=== PATIENT | female | born 1960 | race Caucasian/White ===

== ENCOUNTER → 2017-06-29 | Outpatient (CLI) | payer BC ==
--- NOTE | 2017-06-29 14:22 | MM ---
Reason for exam: screening (asymptomatic). Last mammogram was performed 2 years and 1 month ago. History: Patient is postmenopausal. Family history of breast cancer in maternal cousin at age 53. Implants in both breasts, 1987. Physical Findings: A clinical breast exam by your physician is recommended on an annual basis and results should be correlated with mammographic findings. MG 3D Screen Mammo Imp/Cad Bilateral CC, MLO, and ID view(s) were taken. Prior study comparison: June 05, 2015, bilateral MG screening mammo implant/CAD. August 01, 2013, bilateral digital screening mammo w/CAD. There are scattered fibroglandular densities. There are no suspicious calcifications. Bilateral implants intact. No significant changes when compared with prior studies. ASSESSMENT: Benign, BI-RAD 2 RECOMMENDATION: Routine screening mammogram of both breasts in 1 year.
== END | disposition home or self-care (01) ==
LOC: RADMAMWWP 09:25
PROVIDERS: ATTEND Internal Medicine
DX: Z12.31 Encounter for screening mammogram for malignant neoplasm of breast (principal)
CPT/HCPCS: 77063; 77067

== ENCOUNTER 2017-10-30 12:19 | Inpatient (IN) | payer BC ==
--- NOTE | 2017-10-30 13:12 | ED ---
Dizziness HPI - General Chief Complaint: Dizziness Stated Complaint: Vomiting Time Seen by Provider: 10/30/17 12:40 Source: patient, RN notes reviewed Mode of arrival: wheelchair Limitations: no limitations - History of Present Illness Initial Comments: This is a 57-year-old female who presents with complaints of not feeling well for the past several weeks she's had shortness of breath with exertional dyspnea he had some left-sided chest discomfort he states it 2 days ago she had some heartburn some nausea sweats dizziness and this morning she woke up with her bed sheets soaked from sweats she felt shoulder. She has a stress test and echocardiogram scheduled with not until later in the month. She is hasn't felt well. He has no personal history of heart or lung disease she did quit smoking her mother did from lung cancer at the age of 65. No other current complaints the discomfort was mild to moderate in severity. MD Complaint: dizziness, lightheadedness, other - Related Data Allergies Allergy/AdvReac Type Severity Reaction Status Date / Time No Known Allergies Allergy Verified 10/30/17 12:33 Review of Systems ROS Statement: Those systems with pertinent positive or pertinent negative responses have been documented in the HPI. ROS Other: All systems not noted in ROS Statement are negative. Past Medical History Past Medical History: No Reported History History of Any Multi-Drug Resistant Organisms: None Reported Past Surgical History: Hysterectomy, Tubal Ligation Past Psychological History: Anxiety, Depression Smoking Status: Former smoker Past Alcohol Use History: None Reported, Rare Past Drug Use History: None Reported General Exam - General Exam Comments Initial Comments: This is a well-developed well-nourished awake alert oriented 3 female Limitations: no limitations General appearance: alert, anxious Head exam: Present: atraumatic, normocephalic, normal inspection Eye exam: Present: normal appearance, PERRL, EOMI. Absent: scleral icterus, conjunctival injection, periorbital swelling ENT exam: Present: normal exam, mucous membranes moist Neck exam: Present: normal inspection. Absent: tenderness, meningismus, lymphadenopathy Respiratory exam: Present: normal lung sounds bilaterally. Absent: respiratory distress, wheezes, rales, rhonchi, stridor Cardiovascular Exam: Present: regular rate, normal rhythm, normal heart sounds. Absent: systolic murmur, diastolic murmur, rubs, gallop, clicks GI/Abdominal exam: Present: soft, normal bowel sounds. Absent: distended, tenderness, guarding, rebound, rigid Extremities exam: Present: normal inspection, full ROM, normal capillary refill. Absent: tenderness, pedal edema, joint swelling, calf tenderness Back exam: Present: normal inspection Neurological exam: Present: alert, oriented X3, CN II-XII intact Psychiatric exam: Present: normal affect, normal mood Skin exam: Present: warm, dry, intact, normal color. Absent: rash Course Vital Signs 10/30/17 12:28 Temperature 98.3 F Pulse Rate 98 Respiratory 18 Rate Blood Pressure 109/61 O2 Sat by Pulse 96 Oximetry - Reevaluation(s) Reevaluation #1: 10/30/17 14:28 Patient has demonstrated no chest pain while in the department. Reevaluation #2: 10/30/17 14:29 I did was discussed with the patient and her family members as well as her son who is in PA school in [place] to inform them of the findings. Patient does demonstrate evidence of a non-ST elevation myocardial infarction this did likely began 2 days ago when her symptoms weren't or worse. She currently is pain-free EKG Findings - EKG Results: EKG: interpreted by ERMVito, sinus rhythm (Sinus rhythm with a rate of 92 SC interval 150 QRS duration 82 QT since QTC of 438/541 nonspecific inferior changes or T-wave abnormalities in the anterolateral leads prolonged QT) Medical Decision Making - Medical Decision Making I did discuss findings with the patient family members also with the hospitalist and cardiology will be notified. Patient currently is asymptomatic at rest and maintains good blood pressure pulse rate. She will be admitted for evaluation of a non-ST elevation myocardial infarction - Lab Data Result diagrams: 10/30/17 13:18 10/30/17 13:18 Lab Results 10/30/17 10/30/17 10/30/17 Range/Units :: 13:18 WBC (3.8-10.6) k/uL RBC (3.80-5.40) m/uL Hgb (11.4-16.0) gm/dL Hct (34.0-46.0) % MCV (80.0-100.0) fL MCH (25.0-35.0) pg MCHC (31.0-37.0) g/dL RDW (11.5-15.5) % Plt Count (150-450) k/uL Neutrophils % % Lymphocytes % % Monocytes % % Eosinophils % % Basophils % % Neutrophils # (1.3-7.7) k/uL Lymphocytes # (1.0-4.8) k/uL Monocytes # (0-1.0) k/uL Eosinophils # (0-0.7) k/uL Basophils # (0-0.2) k/uL PT 9.8 (9.0-12.0) sec INR 1.0 (<1.2) APTT 22.2 (22.0-30.0) sec D-Dimer 0.22 (<0.60) mg/L FEU Sodium 140 (137-145) mmol/L Potassium 4.0 (3.5-5.1) mmol/L Chloride 102 (98-107) mmol/L Carbon Dioxide 24 (22-30) mmol/L Anion Gap 14 mmol/L BUN 24 H (7-17) mg/dL Creatinine 1.18 H (0.52-1.04) mg/dL Est GFR (CKD-EPI)AfAm 59 (>60 ml/min/1.73 sqM) Est GFR (CKD-EPI)NonAf 51 (>60 ml/min/1.73 sqM) Glucose 99 (74-99) mg/dL Calcium 10.1 (8.4-10.2) mg/dL Magnesium 2.4 H (1.6-2.3) mg/dL Total Bilirubin 0.8 (0.2-1.3) mg/dL AST 31 (14-36) U/L ALT 43 (9-52) U/L Alkaline Phosphatase 85 (38-126) U/L Total Creatine Kinase 281 H (30-135) U/L CK-MB (CK-2) 3.2 H* (0.0-2.4) ng/mL CK-MB (CK-2) Rel Index 1.1 Troponin I 0.625 H* (0.000-0.034) ng/mL Total Protein 7.2 (6.3-8.2) g/dL Albumin 4.5 (3.5-5.0) g/dL TSH 4.000 (0.465-4.680) mIU/L 10/30/17 Range/Units 13:18 WBC 15.4 H (3.8-10.6) k/uL RBC 5.40 (3.80-5.40) m/uL Hgb 14.9 (11.4-16.0) gm/dL Hct 45.8 (34.0-46.0) % MCV 84.8 (80.0-100.0) fL MCH 27.5 (25.0-35.0) pg MCHC 32.4 (31.0-37.0) g/dL RDW 14.4 (11.5-15.5) % Plt Count 557 H (150-450) k/uL Neutrophils % 68 % Lymphocytes % 24 % Monocytes % 6 % Eosinophils % 0 % Basophils % 0 % Neutrophils # 10.5 H (1.3-7.7) k/uL Lymphocytes # 3.6 (1.0-4.8) k/uL Monocytes # 0.9 (0-1.0) k/uL Eosinophils # 0.1 (0-0.7) k/uL Basophils # 0.0 (0-0.2) k/uL PT (9.0-12.0) sec INR (<1.2) APTT (22.0-30.0) sec D-Dimer (<0.60) mg/L FEU Sodium (137-145) mmol/L Potassium (3.5-5.1) mmol/L Chloride (98-107) mmol/L Carbon Dioxide (22-30) mmol/L Anion Gap mmol/L BUN (7-17) mg/dL Creatinine (0.52-1.04) mg/dL Est GFR (CKD-EPI)AfAm (>60 ml/min/1.73 sqM) Est GFR (CKD-EPI)NonAf (>60 ml/min/1.73 sqM) Glucose (74-99) mg/dL Calcium (8.4-10.2) mg/dL Magnesium (1.6-2.3) mg/dL Total Bilirubin (0.2-1.3) mg/dL AST (14-36) U/L ALT (9-52) U/L Alkaline Phosphatase (38-126) U/L Total Creatine Kinase (30-135) U/L CK-MB (CK-2) (0.0-2.4) ng/mL CK-MB (CK-2) Rel Index Troponin I (0.000-0.034) ng/mL Total Protein (6.3-8.2) g/dL Albumin (3.5-5.0) g/dL TSH (0.465-4.680) mIU/L - Radiology Data Radiology results: report reviewed (I did review the imaging and report no acute findings.), image reviewed Critical Care Time Critical Care Time: Yes Critical Care Time: 32 minutes of critical care time which includes initial presentation with history physical labs x-rays several reevaluation of the patient. Discussed with the patient family as well as the physicians about the findings. Admission orders and documentation of the above. Disposition Clinical Impression: Non-STEMI (non-ST elevated myocardial infarction) Disposition: ADMITTED IP TO THIS [facility] Condition: Stable Referrals: Lita Brown MD [Primary Care Provider] - 1-2 days
[2017-10-30 13:35] LABS: Basophils % (A) 0 %; Eosinophils # (A) 0.1 k/uL (0-0.7); Eosinophils % (A) 0 %; HCT 45.8 % (34.0-46.0); HGB 14.9 gm/dL (11.4-16.0); Lymphocytes # (A) 3.6 k/uL (1.0-4.8); Lymphocytes % (A) 24 %; MCH 27.5 pg (25.0-35.0); MCHC 32.4 g/dL (31.0-37.0); MCV 84.8 fL (80.0-100.0); Mean Platelet Volume 6.6; Monocytes # (A) 0.9 k/uL (0-1.0); Monocytes % (A) 6 %; Neutrophils # (A) 10.5 k/uL (1.3-7.7); Neutrophils % (A) 68 %; Platelet Count 557 k/uL (150-450); RDW 14.4 % (11.5-15.5); WBC 15.4 k/uL (3.8-10.6)
--- NOTE | 2017-10-30 13:37 | XR ---
EXAMINATION TYPE: XR chest 2V DATE OF EXAM: 10/30/2017 HISTORY: cough. REFERENCE: NONE. FINDINGS: The lungs are clear. Pleural spaces are clear. Heart size is upper limits of normal. IMPRESSION: NO ACTIVE INTRATHORACIC DISEASE.
[2017-10-30 13:42] LABS: Albumin 4.5 g/dL (3.5-5.0); Calcium 10.1 mg/dL (8.4-10.2); Magnesium 2.4 mg/dL (1.6-2.3); Total Bilirubin 0.8 mg/dL (0.2-1.3); Total Protein 7.2 g/dL (6.3-8.2)
[2017-10-30 13:45] LABS: D-Dimer 0.22 mg/L FEU (<0.60); Partial Thromboplastin Time 22.2 sec (22.0-30.0); Prothrombin Time 9.8 sec (9.0-12.0)
[2017-10-30 14:07] LABS: Creatine Kinase MB 3.2 ng/mL (0.0-2.4); Troponin I 0.625 ng/mL (0.000-0.034)
[2017-10-30] MEDS ORDERED: NITROGLYCERIN SL TABS 0.4 MG TAB SUBLINGUAL PRN ×2 (14:32→15:50)
[2017-10-30] MEDS ORDERED: HEPARIN SODIUM,PORCINE 5,000 UNIT/ML 1 ML VIAL IV ONE (14:32)
[2017-10-30] MEDS ORDERED: HEPARIN SODIUM,PORCINE/D5W PMX 25,000 UNIT in DEXTROSE/WATER 1 500ML.BAG IV SCH (14:45)
[2017-10-30] MEDS ORDERED: SODIUM CHLORIDE 0.9% 1,000 ML IV SCH ×3 (14:45→17:15)
[2017-10-30] MEDS ORDERED: ALPRAZolam 0.5 MG TAB PO PRN (15:50)
[2017-10-30] MEDS ORDERED: ALPRAZolam 0.25 MG TAB PO PRN (15:50)
[2017-10-30] MEDS ORDERED: ASPIRIN 325 MG TAB PO STA (15:50)
[2017-10-30] MEDS ORDERED: ATORVASTATIN 80 MG TAB PO STA (15:50)
[2017-10-30] MEDS ORDERED: SODIUM CHLORIDE 0.9% 250 ML IV ONE (15:51)
[2017-10-30 16:03] VITALS: BMI 27.3
[2017-10-30 16:04] LABS: Appearance,Urine Clear (Clear); Bacteria,Urine Rare /hpf; Bilirubin,Urine Negative (Negative); Blood,Urine Negative (Negative); Color,Urine Yellow; Glucose,Urine (UA) Negative (Negative); Hyaline Casts,Urine 3 /lpf (0-2); Ketones,Urine 1+ (Negative); Leukocyte Esterase,Urine Moderate (Negative); Mucus,Urine Rare /hpf; Nitrite,Urine Negative (Negative); PH, Urine 5.5 (5.0-8.0); Protein,Urine Negative (Negative); RBC,Urine <1 /hpf (0-5); Specific Gravity,Urine 1.009 (1.001-1.035); Urobilinogen,Urine <2.0 mg/dL (<2.0); WBC,Urine 8 /hpf (0-5)
[2017-10-30] MEDS ORDERED: fentaNYL (PF) 50 MCG/ML 2 ML AMP ONE (16:40)
[2017-10-30] MEDS ORDERED: LIDOCAINE 2% INJ 20 MG/ML SQ ONE ×2 (16:40→16:50)
[2017-10-30] MEDS ORDERED: fentaNYL (PF) 50 MCG/ML 2 ML AMP IVP ONE (16:42)
[2017-10-30] MEDS ORDERED: SODIUM CHLORIDE 0.9% 1,000 ML IV ONE (16:43)
[2017-10-30] MEDS ORDERED: LIDOCAINE 2% INJ 20 MG/ML (20 ML MDV) ONE (16:47)
[2017-10-30] MEDS ORDERED: IOPAMIDOL-370 125ML BTL INJ ONE (17:03)
[2017-10-30] MEDS ORDERED: CLOPIDOGREL 75 MG TAB ONE (17:08)
[2017-10-30] MEDS ORDERED: CLOPIDOGREL 75 MG TAB PO ONE (17:12)
[2017-10-30] MEDS ORDERED: RX INFO: IV CONTRAST WAS GIVEN 1 EACH MISC MISCELLANE PRN (17:13)
[2017-10-30 17:40] LABS: Cholesterol 206 mg/dL (<200); HDL Cholesterol 47 mg/dL (40-60); LDL Cholesterol,Calculated 109 mg/dL (0-99); Triglycerides 251 mg/dL (<150)
[2017-10-30] MEDS ORDERED: NITROGLYCERIN OINT 1 INCH/GM PACKET TOPICAL SCH (18:00)
[2017-10-30 18:32] LABS: Creatine Kinase MB 2.3 ng/mL (0.0-2.4)
[2017-10-30 18:33] LABS: Troponin I 0.432 ng/mL (0.000-0.034)
[2017-10-30] MEDS ORDERED: METOPROLOL TARTRATE 25 MG TAB PO SCH (21:00)
[2017-10-30] MEDS: LISINOPRIL 5 MG TAB PO SCH (21:06)
[2017-10-30] MEDS: METOPROLOL TARTRATE 25 MG TAB PO SCH (21:06)
--- NOTE | 2017-10-30 23:05 | CONS ---
CONSULTATION Juliana Reza is a 57-year-old female who has not been feeling well for the last 3 weeks and has been ignoring her symptoms, trying not to come to the hospital. According to the patient and mostly according to her , she has been short of breath for the last several weeks. Intermittent vague discomfort in the mid chest which she described to lifting heavy objects at work. For the last several days, she has been quite short of breath with activities of daily living and on this Tuesday and this past Tuesday, she was experiencing severe chest discomfort and was quite uncomfortable but refused to come to the hospital and did not listen to her . When she came to the emergency room, she was pain free. The reason she came to the emergency room was because she was very dizzy and was extremely short of breath walking from one room to the other and so her insisted that she come to the emergency room. When I saw her, I interviewed her, she was pain-free. She may have had a intermittent discomfort off and on, but was mild and not associated with shortness of breath on exertion. PAST HISTORY: Of smoking. She stopped smoking 5 years back. No diabetes. No hypertension. Does not know her lipid panel. She had mentioned her symptoms to her primary care physician, Dr. Lita Brown, who has scheduled her for a stress test and an echo. REVIEW OF SYSTEMS: She felt chilly. No fever. Shortness of breath with exertion with no cough or expectoration. No diarrhea. But she did have a bit of nausea and she has recurrent heartburn. No hematuria or dysuria. No strokes or seizures. No skin lesions. No musculoskeletal complaints. She does take Effexor for depression and she does take a and she was asked to take a baby aspirin by her primary care physician recently. PAST SURGERIES: Noncontributory at this point. She also has been told that her platelet count was high and here on review of the labs, platelet count is high but so is white count and neutrophil count. Hemoglobin is in the normal. EXAMINATION: Her blood pressure is 126/82 mmHg, pulse rate is in the 80s. She is afebrile 98 degrees Fahrenheit. Head and neck examination is normal. No JVD thyromegaly or carotid bruits. HEART: Sounds S1, S2 normal. No murmurs, no gallops. No rub. Breath sounds are clear. No rhonchi, no crackles. ABDOMEN: Soft, nontender. Extremities are warm. No edema. A 12-lead ECG shows sinus rhythm with normal MA narrow QRS and ST-segment abnormality in the precordial leads and the high lateral leads. There is mild T-wave inversion in lead V1, but deep T-wave inversions in V2 through V6 as well as in the high lateral leads suggestive of injury to the anterior wall and the lateral wall of the left ventricle. LABS: Reviewed. Troponin was 0.6. CPK 281. Electrolytes are normal. BUN is 24, creatinine is 1.18, but she has not been drinking or eating much for the last 2 days. White count is 15.4, hemoglobin is 14.9, platelet count is 557, neutrophil count 10.5. She denies any recurrent infections. I have asked the nurse to send the UA. Chest x- ray is within normal limits. IMPRESSION: Subacute myocardial injury and based upon her history, which is very suggestive of acute coronary syndrome/unstable angina. She most likely has a non-Q-wave myocardial infarction involving the involving the proximal to mid LAD territory. FINAL IMPRESSION: 1. Likely acute likely subacute myocardial infarction, likely completed myocardial infarction on Tuesday. 2. Past history of smoking. 3. Elevated platelet count, elevated white count. Suggest IV fluids, IV heparin, aspirin, statins, beta blockers and I spoke to Dr. Soria, we will be proceeding with cardiac catheterization within the next hour. The further management thereafter. She will follow up with me as an outpatient. MMODL / IJN: [id number] /
--- NOTE | 2017-10-30 23:14 | CC ---
CARDIAC CATHETERIZATION REPORT HISTORY: Ms. Reza is a 57-year-old female with no prior documented coronary artery disease, who has been complaining of dyspnea on exertion for the last 2 weeks. On Tuesday she had episode of chest discomfort, came into the emergency room. She had T-wave inversion in the antral precordial lead. She was evaluated by Dr. Melvin, and because of her symptoms, EKG changes, and minimal troponin elevation, recommendation made regarding cardiac catheterization. The procedure as well as the risks and complication were discussed with the patient, who is in full understanding and agreement. PROCEDURE: Patient was brought to the cardiac cath lab technologist in a fasting semi-sedated state, after receiving fentanyl and Benadryl and achieving moderate conscious sedated state. Attempts to cannulate the right coronary artery were unsuccessful because of severe spasm that prevented from advancing the wire at that time. Using Xylocaine anesthesia in the Seldinger technique, a 6-Bruneian sheath was introduced in the right femoral artery. Selective right and left coronary angiography performed using a 6-Bruneian 4 bend right Faye catheter and 6-Bruneian FL4 guiding catheter. Images of the coronary artery including sergio-axial views were obtained. Following that, a 6-Bruneian tight pigtail catheter was introduced in the left ventricle and 30 degree NICE view of the left ventricle was obtained. Following that, the catheter and sheath were removed. Hemostasis was obtained with deployment an Angio-Seal. There were no immediate complications. Patient was returned to room in stable condition. FINDINGS: LEFT MAIN: This is a large-size vessel, bifurcating in the left circumflex and left anterior descending artery. Left main coronary artery has no evidence of high-grade stenosis. LEFT ANTERIOR DESCENDING ARTERY: This is a large-sized vessel, reaching to the apex, giving rise to 2 diagonal branches. The left anterior descending artery and its branches have no evidence of obstructive coronary artery disease. LEFT CIRCUMFLEX: This is a nondominant vessel, giving rise to a moderately sized diagonal branch that has no evidence of high-grade stenosis. RIGHT CORONARY ARTERY: This is a large dominant vessel bifurcating to PDA, posterolateral and branches. The right PDA reaches towards the inferoapical wall. The right coronary artery and its branches have no evidence of obstructive coronary artery disease. LEFT VENTRICULOGRAM: Left ventriculogram was performed in 30 degree NICE view and revealed anteroapical and inferoapical akinesis. Ejection fraction 30%. There was no significant mitral regurgitation. HEMODYNAMICS: There was no gradient across the aortic valve. The left ventricle end-diastolic pressure was 16 to 20 mmHg. CONCLUSION: 1. Normal coronary arteries. 2. Severely impaired left ventricular systolic function. RECOMMENDATIONS: The findings and the anatomy are consistent with takotsubo syndrome. I have recommended to maximize her medical therapy and follow up her echocardiogram. Those findings and recommendation were discussed with the patient and her family who are in full understanding and agreement. DURATION OF PROCEDURE: 21 minutes. MMODL / IJN: [id number] /
--- NOTE | 2017-10-30 23:20 | LTR ---
October 30, 2017 Lita Brown MD RE: Juliana Leevey Dear Dr. Brown: I had the opportunity to perform cardiac catheterization on Ms. Reza on October 30, 2017, and a full copy of the procedure note will be forwarded to you. In brief, she was found to have normal coronary arteries. There was a segmental wall motion abnormality and a severely impaired left ventricular systolic function consistent with takotsubo syndrome. I am hopeful that we will see improvement in the the ventricular systolic function with medical therapy. I will keep you updated on her progress. Thank you again for allowing me to participate in this patient's care. Please feel free to call if there are any questions. Sincerely, MMTIL / IJN: [id number] /
[2017-10-30] MEDS: cefTRIAXone IN SWFI 1,000 MG/10 ML SYRINGE IVP SCH (23:34)
[2017-10-31 00:09] LABS: Creatine Kinase MB 2.2 ng/mL (0.0-2.4); Troponin I 0.376 ng/mL (0.000-0.034)
[2017-10-31] MEDS: TEMAZEPAM 15 MG CAP PO PRN ×2 (00:26→20:43)
--- NOTE | 2017-10-31 05:38 | HP ---
HISTORY AND PHYSICAL CHIEF COMPLAINT: Shortness of breath, chest pain, not feeling well. HISTORY OF PRESENT ILLNESS: This 57-year-old woman with a past history of anxiety, depression. No other significant medical issues being followed by Dr. Brown in the outpatient setting, the patient not feeling well over the past several days. The patient is not feeling well, short of breath and also left-sided chest discomfort. The patient had stress test scheduled later this month, but because of increasing difficulty, the patient came to [facility] and admitted to the hospital for further evaluation and treatment. EKG showed diffuse ST inversions. Cardiac catheterization showed normal coronary arteries. Ejection fraction 30%. Patient admitted for further evaluation and treatment. Chest x-ray showed no acute abnormality. There is no history of fever, rigors or chills. No history of headache, loss of consciousness or seizures. White count is elevated. Mild UTI is a possibility. PAST MEDICAL HISTORY: Anxiety and depression. MEDICATIONS: Prior to admission include: 1. Effexor XR 75 mg p.o. daily. 2. Ecotrin 81 mg p.o. daily. ALLERGIES: None. FAMILY HISTORY: History of lung cancer in the family. SOCIAL HISTORY: Previous history of smoking. No history of current smoking or alcohol intake. REVIEW OF SYSTEMS: ENT: No diminished vision. No diminished hearing. CARDIOVASCULAR: As mentioned earlier. RESPIRATORY: As mentioned earlier. GI no nausea. no dysuria. Nervous system: No numbness, weakness. Allergy/Immunology: No asthma or hayfever. MUSCULOSKELETAL: As mentioned earlier. HEMATOLOGY/ONCOLOGY: No history of anemia. Endocrine no history of diabetes or hypothyroidism. Constitutional: As mentioned earlier. Dermatology: Negative. Rheumatology: Negative. Psychiatry: As mentioned earlier. PHYSICAL EXAMINATION: Alert and oriented times three. Pulse is 102, blood pressure 130/60, respirations 16, temperature normal, pulse ox 97% on room air. HEENT: Conjunctivae normal. NECK: No jugular venous distention. Cardiovascular: S1, S2 muffled. Respiratory: Breath sounds diminished in the bases. A few scattered rhonchi and crackles. ABDOMEN: Soft, nontender. No mass palpable. Legs no edema. No swelling. Nervous system: Higher functions as mentioned earlier, moves all 4 limbs, no focal motor deficits. Lymphatics: No lymph nodes palpable in the neck, axillae or groin. Skin no ulcer, rashes or bleeding. LABS: WBC 15.5, hemoglobin 14.9, creatinine 1.18, and troponin 0.625 and cholesterol 207, LDL 109. UA noted. ASSESSMENT: 1. Chest pain, shortness of breath for evaluation with status post cardiac catheterization, normal coronaries, possible takotsubo syndrome. 2. Possible acute urinary tract infection. 3. Hyperlipidemia. 4. Troponin 0.625. 5. Creatinine 1.18 for possible mild acute renal failure. 6. Increased WBC. 7. History of anxiety and depression. 8. Remote history of nicotine dependence. RECOMMENDATIONS AND DISCUSSION: In this 57-year-old woman who presented with multiple complex medical issues, we will monitor the patient closely, continue the current medications, management and symptomatic treatment. At this time the patient is given antiplatelet agents and Lipitor also will be started. Empiric antibiotics will be added and TYLER inhibitors and beta blockers also be used. Repeat labs. Symptomatic treatment. Guarded prognosis because of multiple complex medical issues. Discussed with the patient who understands and agrees. A copy of dictation forwarded to Dr. Brown who is the primary physician. MMODL / IJN: [id number] /
[2017-10-31 06:30] LABS: Basophils # (A) 0.1 k/uL (0-0.2); Basophils % (A) 0 %; Eosinophils % (A) 0 %; HCT 39.7 % (34.0-46.0); HGB 13.3 gm/dL (11.4-16.0); Lymphocytes # (A) 3.2 k/uL (1.0-4.8); Lymphocytes % (A) 30 %; MCH 28.3 pg (25.0-35.0); MCHC 33.4 g/dL (31.0-37.0); MCV 84.6 fL (80.0-100.0); Mean Platelet Volume 6.4; Monocytes # (A) 0.6 k/uL (0-1.0); Monocytes % (A) 5 %; Neutrophils # (A) 6.7 k/uL (1.3-7.7); Neutrophils % (A) 62 %; Platelet Count 475 k/uL (150-450); RDW 14.2 % (11.5-15.5); WBC 10.8 k/uL (3.8-10.6)
[2017-10-31 06:40] LABS: Anion Gap 10 mmol/L; Blood Urea Nitrogen 18 mg/dL (7-17); Calcium 8.9 mg/dL (8.4-10.2); Carbon Dioxide 25 mmol/L (22-30); Chloride 108 mmol/L (98-107); Cholesterol 150 mg/dL (<200); Glucose 103 mg/dL (74-99); HDL Cholesterol 38 mg/dL (40-60); LDL Cholesterol,Calculated 94 mg/dL (0-99); Sodium 143 mmol/L (137-145); Triglycerides 91 mg/dL (<150)
[2017-10-31] MEDS ORDERED: ATORVASTATIN 80 MG TAB PO SCH (09:00)
[2017-10-31] MEDS ORDERED: ASPIRIN 325 MG TAB PO SCH (09:00)
[2017-10-31] MEDS: VENLAFAXINE HCL ER 75 MG CAP PO SCH (09:48)
[2017-10-31] MEDS: SPIRONOLACTONE 25 MG TAB PO SCH (09:49)
[2017-10-31] MEDS: ASPIRIN 81 MG PO SCH (09:49)
[2017-10-31] MEDS: PANTOPRAZOLE 40 MG/10 ML VIAL IVP SCH (09:49)
[2017-10-31] MEDS: METOPROLOL TARTRATE 25 MG TAB PO SCH ×2 (09:49→20:43)
[2017-10-31] MEDS: ATORVASTATIN 40 MG TAB PO SCH (09:49)
--- NOTE | 2017-10-31 12:25 | ECHOF ---
Referral Reason:Non-ST elevation myocardial infarction MEASUREMENTS -------- HEIGHT: 170.2 cm WEIGHT: 79.4 kg BP: 107/68 RVIDd: 2.6 cm (< 3.3) IVSd: 1.1 cm (0.6 - 1.1) LVIDd: 4.7 cm (3.9 - 5.3) LVPWd: 1.2 cm (0.6 - 1.1) IVSs: 1.6 cm LVIDs: 3.0 cm LVPWs: 1.5 cm LA Diam: 3.3 cm (2.7 - 3.8) Ao Diam: 3.5 cm (2.0 - 3.7) AV Cusp: 2.4 cm (1.5 - 2.6) MV EXCURSION: 16.095 mm (> 18.000) MV EF SLOPE: 112 mm/s (70 - 150) EPSS: 0.4 cm MV E [place]: 0.74 m/s MV DecT: 222 ms MV A [place]: 0.78 m/s MV E/A Ratio: 0.94 FINDINGS -------- Sinus rhythm. This was a technically adequate study. The left ventricular size is normal. There is borderline concentric left ventricular hypertrophy. Overall left ventricular systolic function is mildly impaired with, an EF between 45 - 50 %. Mid a nterior LV wall motion is hypokinetic. Apical anterior LV wall motion is hypokinetic. The right ventricle is normal in size. The left atrial size is normal. The right atrium is normal in size. The aortic valve is trileaflet and appears structurally normal. The mitral valve is normal. The tricuspid valve appears structurally normal. There is no pulmonic regurgitation present. The aortic root size is normal. Normal inferior vena cava with normal inspiratory collapse consistent with estimated right atrial pre ssure of 5 mmHg. There is no pericardial effusion. CONCLUSIONS -------- 1. Sinus rhythm. 2. This was a technically adequate study. 3. The left ventricular size is normal. 4. There is borderline concentric left ventricular hypertrophy. 5. Overall left ventricular systolic function is mildly impaired with, an EF between 45 - 50 %. 6. Mid anterior LV wall motion is hypokinetic. 7. Apical anterior LV wall motion is hypokinetic. 8. The left atrial size is normal. 9. The aortic valve is trileaflet and appears structurally normal. 10. The mitral valve is normal. 11. The tricuspid valve appears structurally normal. 12. There is no pulmonic regurgitation present. 13. The aortic root size is normal. 14. Normal inferior vena cava with normal inspiratory collapse consistent with estimated right atrial pressure of 5 mmHg. 15. There is no pericardial effusion. ROLL FILLER: Diana Ramos RDCS
[2017-10-31] MEDS: LISINOPRIL 5 MG TAB PO SCH (12:50)
--- NOTE | 2017-10-31 15:17 | P.PN ---
Subjective Progress Note Date: 10/31/17 This is a 57-year-old female who presented to the hospital with symptoms of progressively worsening shortness of breath with associated vague discomfort in her mid chest. She was seen in consultation by Dr. Melvin and advised to undergo cardiac catheterization. Her troponins were 0.6, 0.4, 0.3, 0.2. RDI catheterization was performed which revealed normal coronary arteries with severely impaired left ventricular systolic function. Echo cardiac gram with Doppler study was performed which revealed mild impairment of the LV function, 45-50% with mid and apical wall hypokinesis EF noted suggestive of possible stress cardiomyopathy. Blood pressure 102/50, heart rate in the 60s, temperature 97.8, 96% on room air. White blood cell count 10.8, hemoglobin 13.3 , platelet count 475. Sodium 143, potassium 4.0, BUN 18, creatinine 0.7. TSH level 4..0. Patient denies any chest pain today, overall feels well, no difficulty in breathing. She does state that she is under significant amount of stress at home with a grandchild that she is raising, she also states that she has been significantly stressed at work recently. Objective - Vital Signs Vital signs: Vital Signs Temp 97.8 F 10/31/17 11:10 Pulse 62 10/31/17 11:10 Resp 18 10/31/17 12:40 BP 102/53 10/31/17 12:40 Pulse Ox 96 10/31/17 12:40 Intake & Output 10/30/17 10/31/17 10/31/17 18:59 06:59 18:59 Intake Total 620 640 480 Output Total 400 300 Balance 220 340 480 Weight 79.379 kg 79.379 kg Intake: IV 150 Intake, IV Titration 350 400 Amount Sodium Chloride 0.9% 1, 100 000 ml @ 100 mls/hr IV . Q10H LÓPEZ Rx#:[id number] Sodium Chloride 0.9% 1, 400 000 ml @ 100 mls/hr IV . Q10H LÓPEZ Rx#:[id number] Sodium Chloride 0.9% 250 250 ml @ 999 mls/hr IV .Q16M ONE Rx#:[id number] Oral 120 240 480 Output: Urine 400 300 Other: Voiding Method Toilet # Voids 2 - Exam PHYSICAL EXAMINATION: HEENT: Head is atraumatic, normocephalic. Pupils equal, round. Neck is supple. There is no elevated jugular venous pressure. HEART EXAMINATION: Heart S1, S2 normal. No murmur or gallop heard. CHEST EXAMINATION: Lungs are clear to auscultation and precussion. No chest wall tenderness is noted on palpation or with deep breathing. ABDOMEN: Soft, nontender. Bowel sounds are heard. No organomegaly noted. Right groin soft, no evidence of any hematoma EXTREMITIES: 2+ peripheral pulses with no evidence of peripheral edema and no calf tenderness noted. NEUROLOGIC patient is awake, alert and oriented -3. . - Labs CBC & Chem 7: 10/31/17 06:14 10/31/17 06:14 Labs: Abnormal Lab Results - Last 24 Hours (Table) 10/30/17 10/30/17 10/30/17 Range/Units 13:11 15:54 17:41 WBC (3.8-10.6) k/uL Plt Count (150-450) k/uL Chloride (98-107) mmol/L BUN (7-17) mg/dL Glucose (74-99) mg/dL Total Creatine Kinase 237 H (30-135) U/L Troponin I 0.432 H* (0.000-0.034) ng/mL Triglycerides 251 H (<150) mg/dL Cholesterol 206 H (<200) mg/dL LDL Cholesterol, Calc 109 H (0-99) mg/dL HDL Cholesterol (40-60) mg/dL Urine Ketones 1+ H (Negative) Ur Leukocyte Esterase Moderate H (Negative) Urine WBC 8 H (0-5) /hpf Urine Bacteria Rare H (None) /hpf Hyaline Casts 3 H (0-2) /lpf Urine Mucus Rare H (None) /hpf 10/30/17 10/31/17 10/31/17 Range/Units 23:22 06:14 06:14 WBC (3.8-10.6) k/uL Plt Count (150-450) k/uL Chloride 108 H (98-107) mmol/L BUN 18 H (7-17) mg/dL Glucose 103 H (74-99) mg/dL Total Creatine Kinase 206 H (30-135) U/L Troponin I 0.376 H* 0.292 H* (0.000-0.034) ng/mL Triglycerides (<150) mg/dL Cholesterol (<200) mg/dL LDL Cholesterol, Calc (0-99) mg/dL HDL Cholesterol 38 L (40-60) mg/dL Urine Ketones (Negative) Ur Leukocyte Esterase (Negative) Urine WBC (0-5) /hpf Urine Bacteria (None) /hpf Hyaline Casts (0-2) /lpf Urine Mucus (None) /hpf 10/31/17 Range/Units 06:14 WBC 10.8 H (3.8-10.6) k/uL Plt Count 475 H (150-450) k/uL Chloride (98-107) mmol/L BUN (7-17) mg/dL Glucose (74-99) mg/dL Total Creatine Kinase (30-135) U/L Troponin I (0.000-0.034) ng/mL Triglycerides (<150) mg/dL Cholesterol (<200) mg/dL LDL Cholesterol, Calc (0-99) mg/dL HDL Cholesterol (40-60) mg/dL Urine Ketones (Negative) Ur Leukocyte Esterase (Negative) Urine WBC (0-5) /hpf Urine Bacteria (None) /hpf Hyaline Casts (0-2) /lpf Urine Mucus (None) /hpf Microbiology - Last 24 Hours (Table) 10/30/17 23:10 Urine Culture - Preliminary Urine,Clean Catch Assessment and Plan Plan: Assessment and plan #1 chest discomfort with associated troponin abnormality, Echo reveals anterior wall hypokinesia with an ejection fraction of 45%. Status post cardiac catheterization which revealed normal coronary arteries, clinical picture suggestive of stress cardiomyopathy. #2 nicotine dependence Plan We'll continue the patient on Ecotrin 81 mg daily, Lipitor 40 mg daily, lisinopril 5 mg twice a day, metoprolol 25 mg by mouth twice a day, Aldactone 25 mg daily. Patient has been advised to be up ambulating in the hallway as tolerated today we will plan for possible discharge home in the morning if stable. DNP note has been reviewed, I agree with a documented findings and plan of care. Patient was seen and examined.
[2017-11-01] MEDS: cefTRIAXone IN SWFI 1,000 MG/10 ML SYRINGE IVP SCH (00:18)
[2017-11-01 01:04] VITALS: RESP 16
--- NOTE | 2017-11-01 06:16 | PN ---
PROGRESS NOTE DATE OF SERVICE: 10/31/2017 This is 57-year-old woman who was admitted with shortness of breath and chest pain and multiple other medical problems, also had cardiac catheterization with normal coronaries, ejection fraction found to be 30% indicating Takotsubo cardiomyopathy. The patient being closely monitored. No chest pain or palpitations. No fever. Currently Cardiology is following the patient closely. Patient is medically treatment. Ejection fraction found to be 40% to 45% on the 2-D echo, apical anterior LV motion was noted to be hypokinetic. PHYSICAL EXAMINATION: On exam, alert and oriented x3. Pulse 90, blood pressure 102/56, respirations 16, temperature 98.2, pulse ox 97% on room air. HEENT: Conjunctivae normal. Oral mucosa moist. Neck is no jugular venous distention. No carotid bruit. No lymph node enlargement. CARDIOVASCULAR: S1 and S2 muffled. RESPIRATORY: Breath sounds diminished at the bases. No rhonchi, no crackles. ABDOMEN: Soft, nontender. LEGS: No edema, no swelling. NERVOUS SYSTEM: No focal deficits. LABS: WBC 10.8 and troponin 0.292. UA noted. The cultures are negative so far. ASSESSMENT: 1. Chest pain, shortness of breath, status post cardiac catheterization, normal coronary arteries, possible takotsubo syndrome. 2. Acute systolic dysfunction, ejection fraction 40% to 45% possibly secondary to takotsubo syndrome. 3. Possible acute urinary tract infection. 4. Hyperlipidemia. 5. Troponin 0.625. 6. Creatinine 1.18, possible mild acute renal failure. 7. Increased WBC. 8. History of anxiety, depression. 9. Remote history of nicotine dependence. RECOMMENDATIONS AND DISCUSSION: Recommend to continue current medication. Continued symptomatic treatment. Medical treatment with beta blockers. Closely follow with Cardiology. Increase ambulation. Further recommendations to follow. MMODL / IJN: [id number] /
[2017-11-01 06:49] LABS: Basophils % (A) 0 %; Eosinophils % (A) 0 %; HGB 13.3 gm/dL (11.4-16.0); Lymphocytes # (A) 2.4 k/uL (1.0-4.8); Lymphocytes % (A) 25 %; MCH 28.2 pg (25.0-35.0); MCHC 32.4 g/dL (31.0-37.0); MCV 87.1 fL (80.0-100.0); Mean Platelet Volume 6.1; Monocytes # (A) 0.5 k/uL (0-1.0); Monocytes % (A) 5 %; Neutrophils # (A) 6.4 k/uL (1.3-7.7); Neutrophils % (A) 67 %; Platelet Count 462 k/uL (150-450); RBC 4.71 m/uL (3.80-5.40); RDW 14.4 % (11.5-15.5); WBC 9.5 k/uL (3.8-10.6)
[2017-11-01 07:04] LABS: Anion Gap 12 mmol/L; Blood Urea Nitrogen 18 mg/dL (7-17); Calcium 9.4 mg/dL (8.4-10.2); Carbon Dioxide 27 mmol/L (22-30); Chloride 105 mmol/L (98-107); Glucose 111 mg/dL (74-99); Potassium 4.6 mmol/L (3.5-5.1); Sodium 144 mmol/L (137-145)
[2017-11-01] MEDS: ATORVASTATIN 40 MG TAB PO SCH (08:49)
[2017-11-01] MEDS: ASPIRIN 81 MG PO SCH (08:49)
[2017-11-01] MEDS: METOPROLOL TARTRATE 25 MG TAB PO SCH (08:49)
[2017-11-01] MEDS: SPIRONOLACTONE 25 MG TAB PO SCH (08:50)
[2017-11-01] MEDS: PANTOPRAZOLE 40 MG/10 ML VIAL IVP SCH (08:50)
[2017-11-01] MEDS: VENLAFAXINE HCL ER 75 MG CAP PO SCH (08:50)
[2017-11-01] MEDS ORDERED: LISINOPRIL 5 MG TAB PO SCH (09:00)
[2017-11-01 11:21] VITALS: BP 114/55; PULSE 71; TEMP 97.2
--- NOTE | 2017-11-01 12:13 | P.PN ---
Subjective Progress Note Date: 11/01/17 This is a 57-year-old female who presented to the hospital with symptoms of progressively worsening shortness of breath with associated vague discomfort in her mid chest. She was seen in consultation by Dr. Melvin and advised to undergo cardiac catheterization. Her troponins were 0.6, 0.4, 0.3, 0.2. RDI catheterization was performed which revealed normal coronary arteries with severely impaired left ventricular systolic function. Echo cardiac gram with Doppler study was performed which revealed mild impairment of the LV function, 45-50% with mid and apical wall hypokinesis EF noted suggestive of possible stress cardiomyopathy. Blood pressure 102/50, heart rate in the 60s, temperature 97.8, 96% on room air. White blood cell count 10.8, hemoglobin 13.3 , platelet count 475. Sodium 143, potassium 4.0, BUN 18, creatinine 0.7. TSH level 4..0. Patient denies any chest pain today, overall feels well, no difficulty in breathing. She does state that she is under significant amount of stress at home with a grandchild that she is raising, she also states that she has been significantly stressed at work recently. 11/01/2017 Patient seen and examined this morning, denies any chest pain, breathing overall has been stable. She's been up ambulating without any difficulty. Blood pressure 114/50 heart rate in the 70s, temperature 97.2 she's 96% on room air. White blood cell count 9.5, hemoglobin 13.3, platelet count 462. Sodium 144, potassium 4.6, BUN 18, creatinine 0.7. Objective - Vital Signs Vital signs: Vital Signs Temp 97.2 F L 11/01/17 11:18 Pulse 71 11/01/17 11:18 Resp 16 11/01/17 11:18 BP 114/55 11/01/17 11:18 Pulse Ox 96 11/01/17 11:18 Intake & Output 10/31/17 11/01/17 11/01/17 18:59 06:59 18:59 Intake Total 720 370 Balance 720 370 Weight 81.1 kg Intake: Intake, IV Titration 10 Amount Sodium Chloride 0.9% 1, 10 000 ml As IV .STK-MED ONE Rx#:[id number] Oral 720 360 Other: Voiding Method Toilet Toilet Toilet # Voids 0 1 - Exam PHYSICAL EXAMINATION: HEENT: Head is atraumatic, normocephalic. Pupils equal, round. Neck is supple. There is no elevated jugular venous pressure. HEART EXAMINATION: Heart S1, S2 normal. No murmur or gallop heard. CHEST EXAMINATION: Lungs are clear to auscultation and precussion. No chest wall tenderness is noted on palpation or with deep breathing. ABDOMEN: Soft, nontender. Bowel sounds are heard. No organomegaly noted. Right groin soft, no evidence of any hematoma EXTREMITIES: 2+ peripheral pulses with no evidence of peripheral edema and no calf tenderness noted. NEUROLOGIC patient is awake, alert and oriented -3. . - Labs CBC & Chem 7: 11/01/17 06:18 11/01/17 06:18 Labs: Abnormal Lab Results - Last 24 Hours (Table) 11/01/17 11/01/17 Range/Units 06:18 06:18 Plt Count 462 H (150-450) k/uL BUN 18 H (7-17) mg/dL Glucose 111 H (74-99) mg/dL Microbiology - Last 24 Hours (Table) 10/30/17 13:18 Blood Culture - Preliminary Blood No Growth after 24 hours 10/30/17 23:10 Urine Culture - Preliminary Urine,Clean Catch Assessment and Plan Plan: Assessment and plan #1 chest discomfort with associated troponin abnormality, Echo reveals anterior wall hypokinesia with an ejection fraction of 45%. Status post cardiac catheterization which revealed normal coronary arteries, clinical picture suggestive of stress cardiomyopathy. #2 nicotine dependence Plan We'll continue the patient on Ecotrin 81 mg daily, Lipitor 40 mg daily, lisinopril 5 mg twice a day, metoprolol 25 mg by mouth twice a day, Aldactone 25 mg daily. The patient may be able to be discharged home today. She will have a follow-up appointment with Dr. Melvin tomorrow, she also had asked Dr. Melvin if she could travel to maintain this which he gave her r consent to do. Patient has also been provided a note for her employer. DNP note has been reviewed, I agree with a documented findings and plan of care. Patient was seen and examined.
--- NOTE | 2017-11-01 12:48 | P.DS ---
Providers Date of admission: 10/30/17 14:32 Attending physician: Anoop Quezada Consults: 10/30/17 14:41 Consult Physician Urgent Consulting Provider: Jam Melvin Consult Reason/Comments: Non-ST elevation myocardial infarction Do you want consulting provider notified?: Already Contacted Primary care physician: Lita Brown [facility] Course: 57-year-old female came in with compensative shortness of breath found to have ejection fraction of around 45%. Patient underwent cardiac ablation because of the abnormal troponins, which did not show any significant atherosclerotic coronary occlusive disease. Cardiology believes patient has stress-induced Cardiomyopathy or takatsubo's syndrome, patient doesn't have any symptoms of shortness of breath at this point of time doesn't require any diuretic therapy either patient is being discharged on lisinopril beta estelle follow-up with cardiology as an outpatient. PHYSICAL EXAMINATION: GENERAL: The patient is alert and oriented x3, not in any acute distress. Well developed, well nourished. HEENT: Pupils are round and equally reacting to light. EOMI. No scleral icterus. No conjunctival pallor. Normocephalic, atraumatic. No pharyngeal erythema. No thyromegaly. CARDIOVASCULAR: S1 and S2 present. No murmurs, rubs, or gallops. PULMONARY: Chest is clear to auscultation, no wheezing or crackles. ABDOMEN: Soft, nontender, nondistended, normoactive bowel sounds. No palpable organomegaly. MUSCULOSKELETAL: No joint swelling or deformity. EXTREMITIES: No cyanosis, clubbing, or pedal edema. NEUROLOGICAL: Gross neurological examination did not reveal any focal deficits. SKIN: No rashes. -Shortness of breath: Secondary to stress-induced cardiomyopathy which improved now will not require any diuretic therapy -Congestive heart failure, secondary to stress-induced cardiopathy myopathy EF of 45% expected to improve -Chest pain rule out acute medicine syndromes status post cardiac catheterization -Nicotine dependence -hyperlipidemia Patient Condition at Discharge: Stable Plan - Discharge Summary Discharge Rx Participant: Yes New Discharge Prescriptions: New Atorvastatin [Lipitor] 40 mg PO DAILY #30 tab Lisinopril [Zestril] 5 mg PO DAILY #30 tab Metoprolol Tartrate [Lopressor] 25 mg PO BID #60 tab Spironolactone [Aldactone] 25 mg PO DAILY #30 tab Continue Venlafaxine HCl ER [Effexor XR] 75 mg PO DAILY No Action Aspirin EC [Ecotrin Low Dose] 81 mg PO DAILY Discharge Medication List Aspirin EC [Ecotrin Low Dose] 81 mg PO DAILY 10/30/17 [History] Venlafaxine HCl ER [Effexor XR] 75 mg PO DAILY 10/30/17 [History] Atorvastatin [Lipitor] 40 mg PO DAILY #30 tab 11/01/17 [Rx] Lisinopril [Zestril] 5 mg PO DAILY #30 tab 11/01/17 [Rx] Metoprolol Tartrate [Lopressor] 25 mg PO BID #60 tab 11/01/17 [Rx] Spironolactone [Aldactone] 25 mg PO DAILY #30 tab 11/01/17 [Rx] Follow up Appointment(s)/Referral(s): Jam Melvin MD [STAFF PHYSICIAN] - 11/02/17 11:30 am (Tuesday) Lita Brown MD [Primary Care Provider] - 1 Week (Please call and schedule follow up appointment when you return home from [place].) Patient Instructions/Handouts: *[facility] - After Heart Catheterization - Property Insurance Inspector Instructions, Left Heart Catheterization (DC) Discharge/Stand Alone Forms: Work/Release Restrictions Form Discharge Disposition: HOME SELF-CARE
== END 2017-11-01 13:01 | disposition home or self-care (01) | DRG 286 ==
LOC: EC 12:19 → 6SEL 14:32
PROVIDERS: ADMIT Hospitalist; ATTEND Hospitalist
PROC: B2111ZZ Fluoroscopy of Multiple Coronary Arteries using Low Osmolar Contrast (ICD-10-PCS; principal; 2017-10-30 16:19)
PROC: B2151ZZ Fluoroscopy of Left Heart using Low Osmolar Contrast (ICD-10-PCS; principal; 2017-10-30 16:19)
PROC: 4A023N7 Measurement of Cardiac Sampling and Pressure, Left Heart, Percutaneous Approach (ICD-10-PCS; principal; 2017-10-30 16:19)
DX: I51.81 Takotsubo syndrome (principal); I50.21 Acute systolic (congestive) heart failure; N17.9 Acute kidney failure, unspecified; N39.0 Urinary tract infection, site not specified; E78.5 Hyperlipidemia, unspecified; F17.200 Nicotine dependence, unspecified, uncomplicated; X50.0XXA Overexertion from strenuous movement or load, initial encounter; F32.9 Major depressive disorder, single episode, unspecified; F41.9 Anxiety disorder, unspecified; Z79.899 Other long term (current) drug therapy; Z80.1 Family history of malignant neoplasm of trachea, bronchus and lung
CPT/HCPCS: 36415; 71046; 80048; 80053; 80061; 81001; 82550; 82553; 83735; 84443; 84484; 85025; 85379; 85610; 85730; 87040; 87086; 93306; 93458; 96374; 99285

== ENCOUNTER 2018-02-02 09:41 | Day surgery (SDC) | payer BC ==
[2018-01-31 12:57] VITALS: BMI 31.3
[~2018-02-02 09:41] MED LIST: LACTATED RINGERS 1,000 ML IV SCH
[2018-02-02 10:18] VITALS: RESP 16; TEMP 97.8
[2018-02-02] MEDS ORDERED: LIDOCAINE 1% 20 ML VIAL (10MG/ML) FOR IV START INTRADERMA ONE (10:22)
[2018-02-02] MEDS ORDERED: LIDOCAINE 1% INJ 10MG/ML (20 ML MDV) ONE (11:03)
[2018-02-02] MEDS ORDERED: PROPOFOL 10 MG/ML 20 ML VIAL IV ONE (11:03)
--- NOTE | 2018-02-02 11:30 | P.PCN ---
Date of Procedure: 02/02/18 Procedure(s) Performed: Procedure: Total colonoscopy. Preoperative diagnosis: Screening for neoplasia, patient has history of polyps. Postoperative diagnosis: Sigmoid diverticulosis with no evidence of acute diverticulitis, strictures, polyps or cancer. Preparation: HalfLytely prep. Sedation: Was provided by anesthesia. Brief clinical history: The patient is a 57-year-old female who is scheduled for this evaluation because of history of polyps. Her last exam was around 5 years ago. The patient has no overt bleeding. She has no abdominal complaints or change in bowel habits or anemia. Procedure: With the patient on her left lateral decubitus position and after informed consent and adequate sedation, the perianal area was inspected and it did not show any fissures or fistulas. There were no masses felt on digital rectal examination. The Olympus CFQ 160L video colonoscope was then inserted in the rectum in the usual fashion and advanced to the cecum. There were several diverticular orifices seen scattered in the sigmoid but I saw no evidence of acute diverticulitis or strictures. No polyps or tumors were seen. The mucosa appeared healthy. I retroflexed the endoscope in the rectum before the endoscope was withdrawn The patient tolerated the procedure well. Plan: The patient was reassured. Discussed dietary measures. She will follow- up with you as planned. I recommended repeat exam in 5 years.
[2018-02-02 11:49] VITALS: BP 124/77; PULSE 73
== END 2018-02-02 11:59 | disposition home or self-care (01) ==
LOC: ORWHC2ENDO 09:41
DX: Z12.11 Encounter for screening for malignant neoplasm of colon (principal); K57.30 Diverticulosis of large intestine without perforation or abscess without bleeding; Z86.010 Personal history of colon polyps; K21.9 Gastro-esophageal reflux disease without esophagitis; I42.9 Cardiomyopathy, unspecified; Z79.82 Long term (current) use of aspirin; Z79.899 Other long term (current) drug therapy; Z87.891 Personal history of nicotine dependence
CPT/HCPCS: J2001; J2704; G0105; 45378

== ENCOUNTER → 2018-09-27 | Outpatient (CLI) | payer OTHER ==
--- NOTE | 2018-09-29 10:00 | MM ---
Reason for exam: screening (asymptomatic). Last mammogram was performed 1 year and 3 months ago. History: Patient is postmenopausal. Family history of breast cancer in maternal cousin at age 53. Implants in both breasts, 1987. Physical Findings: A clinical breast exam by your physician is recommended on an annual basis and results should be correlated with mammographic findings. MG 3D Screen Mammo Imp/Cad Bilateral CC, MLO, and ID view(s) were taken. Prior study comparison: June 29, 2017, bilateral MG 3d screen mammo imp/cad. June 05, 2015, bilateral MG screening mammo implant/CAD. There are scattered fibroglandular densities. There is chronic nodularity in the left breast. Bilateral breast prothesis. No significant changes when compared with prior studies. ASSESSMENT: Benign, BI-RAD 2 RECOMMENDATION: Routine screening mammogram of both breasts in 1 year.
== END | disposition home or self-care (01) ==
LOC: RADMAMWWP 13:27
PROVIDERS: ATTEND Internal Medicine
DX: Z12.31 Encounter for screening mammogram for malignant neoplasm of breast (principal)
CPT/HCPCS: 77063; 77067

== ENCOUNTER → 2019-01-11 | Outpatient (CLI) | payer OTHER ==
--- NOTE | 2019-01-11 15:33 | CT ---
EXAMINATION TYPE: CT chest w con DATE OF EXAM: 01/11/2019 COMPARISON: NONE HISTORY: Shortness of breath. CT DLP: 552 mGycm. Automated Exposure Control for Dose Reduction was Utilized. TECHNIQUE: CT scan of the thorax is performed following with IV Contrast, patient injected with 100m l mL of Isovue 300. FINDINGS: LUNGS: Mild underlying emphysematous changes are present. There is scattered mild linear scarring in both bases. No suspicious consolidation. No pleural effusion or pneumothorax. MEDIASTINUM: There are no greater than 1 cm hilar or mediastinal lymph nodes. No cardiomegaly or pe ricardial effusion is seen. Suspects small nodules throughout the normal sized thyroid . OTHER: Subpectoral symmetric appearing bilateral breast implants are noted. Cholecystectomy clips are seen. Tiny nodule left adrenal gland superiorly coronal image 49 is presumed benign. IMPRESSION: Mild underlying emphysematous and chronic parenchymal changes without suspicious acute pu lmonary process.
== END | disposition home or self-care (01) ==
LOC: RADCTMAIN 14:49
PROVIDERS: ATTEND Internal Medicine
DX: J43.9 Emphysema, unspecified (principal); J98.4 Other disorders of lung
CPT/HCPCS: 71260; Q9967

== ENCOUNTER → 2019-04-24 | Outpatient (CLI) | payer OTHER ==
[2019-04-25 15:04] LABS: Alt. alternata IgE Class CLASS 0; Alternaria alternata IgE <0.10 kU/L (<0.10); Asperg. fumagatus IgE <0.10 kU/L (<0.10); Asperg. fumagatus IgE Class CLASS 0; Candida albicans IgE Class CLASS 0; Clad herbarum IgE <0.10 kU/L (<0.10); Clad herbarum IgE Class CLASS 0; Latex IgE Class CLASS 0; Mucor racemosus IgE <0.10 kU/L (<0.10); Mucor racemosus IgE Class CLASS 0; Penicillium chrysogenum IgE <0.10 kU/L (<0.10); Penicillium chrysogenum IgE Cl CLASS 0
== END | disposition home or self-care (01) ==
LOC: LABWHC1 13:15
PROVIDERS: ATTEND Internal Medicine Sleep Medicine
DX: B44.81 Allergic bronchopulmonary aspergillosis (principal)
CPT/HCPCS: 36415; 86001; 86003; 86606; 86609

== ENCOUNTER → 2020-10-14 | Outpatient (CLI) | payer OTHER ==
--- NOTE | 2020-10-14 11:32 | XR ---
EXAMINATION TYPE: XR chest 2V DATE OF EXAM: 10/14/2020 COMPARISON: Chest x-ray October 30, 2017. CT chest January 11, 2019 HISTORY: Family history of lung cancer. History of breast cancer. TECHNIQUE: Frontal and lateral views of the chest are obtained. FINDINGS: There is no new suspicious focal air space opacity, pleural effusion, or pneumothorax seen . The cardiac silhouette size remains within normal limits. The osseous structures are intact. IMPRESSION: No acute cardiopulmonary process. No significant change from prior studies.
== END | disposition home or self-care (01) ==
LOC: RADXRYALE 10:43
PROVIDERS: ATTEND Internal Medicine
DX: Z12.31 Encounter for screening mammogram for malignant neoplasm of breast (principal); Z85.3 Personal history of malignant neoplasm of breast; Z80.1 Family history of malignant neoplasm of trachea, bronchus and lung
CPT/HCPCS: 71046

== ENCOUNTER → 2020-11-27 | Outpatient (CLI) | payer OTHER ==
--- NOTE | 2020-12-03 11:08 | MM ---
Reason for exam: screening (asymptomatic). Last mammogram was performed 2 years and 2 months ago. History: Patient is postmenopausal. Family history of breast cancer in maternal cousin at age 53. Implants in both breasts, 1987. Physical Findings: A clinical breast exam by your physician is recommended on an annual basis and results should be correlated with mammographic findings. MG 3D Screen Mammo Imp/Cad Bilateral CC, MLO, and ID view(s) were taken. Prior study comparison: September 27, 2018, bilateral MG 3d screen mammo imp/cad. June 29, 2017, bilateral MG 3d screen mammo imp/cad. There are scattered fibroglandular densities. Retropectoral silicone implants. No significant changes when compared with prior studies. ASSESSMENT: Negative, BI-RAD 1 RECOMMENDATION: Routine screening mammogram of both breasts in 1 year.
== END | disposition home or self-care (01) ==
LOC: RADMAMWWP 08:09
PROVIDERS: ATTEND Internal Medicine
DX: Z12.31 Encounter for screening mammogram for malignant neoplasm of breast (principal); Z80.3 Family history of malignant neoplasm of breast; Z78.0 Asymptomatic menopausal state
CPT/HCPCS: 77063; 77067

== ENCOUNTER 2021-06-30 06:24 | Day surgery (SDC) | payer OTHER ==
[2021-06-25 09:48] VITALS: BMI 28.1
[2021-06-30] MEDS ORDERED: LACTATED RINGERS 1,000 ML IV ONE (06:53)
[2021-06-30 06:54] VITALS: TEMP 97.9
[2021-06-30 07:00] LABS: Glucose,Whole Blood 100 mg/dL (75-99)
[2021-06-30] MEDS ORDERED: LIDOCAINE 1% INJ 10MG/ML (20 ML MDV) ONE (07:22)
[2021-06-30] MEDS ORDERED: PROPOFOL 10 MG/ML 20 ML VIAL IV ONE (07:22)
[2021-06-30] MEDS ORDERED: PHENYLEPHRINE-0.9% NACL SYG 1,000 MCG/10 ML SYRINGE ONE (07:22)
--- NOTE | 2021-06-30 07:47 | P.PCN ---
Date of Procedure: 06/30/21 Procedure(s) Performed: Brief history: Patient is a pleasant 61-year-old white female scheduled for an elective upper endoscopy as well as colonoscopy as a part of evaluation of I deficiency anemia. She denies any GI symptoms. Procedure performed: Esophagogastroduodenoscopy with biopsy Colonoscopy with biopsy Preoperative diagnosis: Iron deficiency anemia Anesthesia: [facility] [place] Procedure: After informed consent was obtained from the patient was brought into the endoscopy unit and IV sedation was administered by anesthesia under continuous monitoring. Initially upper endoscopy was done. The Olympus GF 160 video endoscope was inserted inserted into the mouth and esophagus intubated without any difficulty and was gradually advanced into the stomach and duodenum and carefully examined. The bulb and second part of the duodenum appeared normal. Abscesses were done from the duodenum to rule out celiac disease. The scope was then withdrawn into the stomach adequately insufflated with air and upon careful examination the antrum had mild diffuse gastritis and biopsies were done from this area. The body, cardia and fundus appeared normal. The scope was then withdrawn into the esophagus. The GE junction was located at 38 cm to the incisors. It appeared regular with no erythema erosions or ulcerations. Rest of the esophagus appeared normal. Patient tolerated the procedure well. At this time the patient continued to remain sedation. Initial digital rectal examination was normal. Olympus CF 160 video colonoscope was then inserted into the rectum and gradually advanced to the cecum without any difficulty. Careful examination was performed as the scope was gradually being withdrawn. The prep was excellent. The cecum there was a 3 mm polyp that was removed by cold biopsy. Ascending colon there was a 5 limited polyp that was removed by cold biopsy. Rest of the transverse colon, descending colon, sigmoid colon and rectum appeared normal. Retroflexion was performed in the rectum and no lesions were noted. Patient tolerated the procedure well. Impression: 1. Upper endoscopy revealed mild antral gastritis but no evidence of esophagitis or peptic ulcer disease 2. Colonoscopy revealed 3 mm cecal polyp and a 5 mm ascending colon polyps is post removal by cold biopsy. Recommendations: Findings of this examination were discussed with the patient as well kemar family. She was advised to follow with the biopsy results. if the biopsy the colon polyp reveals adenoma, she can have a repeat colonoscopy in 5 years.
[2021-06-30 07:53] VITALS: RESP 16
[2021-06-30 08:13] VITALS: BP 138/76; PULSE 69
== END 2021-06-30 08:22 | disposition home or self-care (01) ==
LOC: ORWHC2ENDO 06:24
PROVIDERS: ATTEND Internal Medicine Gastroenterology
DX: D12.0 Benign neoplasm of cecum (principal); D12.2 Benign neoplasm of ascending colon; K29.50 Unspecified chronic gastritis without bleeding; D50.9 Iron deficiency anemia, unspecified; Z79.899 Other long term (current) drug therapy; Z88.0 Allergy status to penicillin; I10 Essential (primary) hypertension; I42.9 Cardiomyopathy, unspecified; E11.9 Type 2 diabetes mellitus without complications; F41.9 Anxiety disorder, unspecified; F32.A Depression, unspecified; Z90.710 Acquired absence of both cervix and uterus; K21.9 Gastro-esophageal reflux disease without esophagitis; Z79.1 Long term (current) use of non-steroidal anti-inflammatories (NSAID); Z79.51 Long term (current) use of inhaled steroids
CPT/HCPCS: 88305; 45380; 43239; J2001; J2370; J2704

== ENCOUNTER → 2021-07-24 | Day surgery (SDC) | payer OTHER ==
[2021-07-21 11:35] VITALS: BMI 28.1
[~2021-07-24] MED LIST changes: +MIDAZOLAM 2 MG/2 ML VIAL ONE; +PROPOFOL 10 MG/ML 20 ML VIAL IV ONE; +fentaNYL (PF) 50 MCG/ML 2 ML AMP ONE
[2021-07-24 11:55] VITALS: TEMP 97.4
[2021-07-24 12:06] LABS: Glucose,Whole Blood 94 mg/dL (75-99)
[2021-07-24 12:34] VITALS: RESP 16
[2021-07-24 13:00] VITALS: BP 130/86; PULSE 75
[2021-07-24 14:10] LABS: Basophils % (A) 0 %; Eosinophils % (A) 0 %; HGB 13.4 gm/dL (11.4-16.0); Lymphocytes # (A) 2.2 k/uL (1.0-4.8); Lymphocytes % (A) 32 %; MCH 28.3 pg (25.0-35.0); MCHC 32.6 g/dL (31.0-37.0); MCV 86.8 fL (80.0-100.0); Mean Platelet Volume 6.9; Monocytes # (A) 0.4 k/uL (0-1.0); Monocytes % (A) 6 %; Neutrophils % (A) 59 %; Platelet Count 527 k/uL (150-450); RBC 4.72 m/uL (3.80-5.40); RDW 14.7 % (11.5-15.5); Reticulocyte % 1.5 % (0.5-2.0); WBC 6.7 k/uL (3.8-10.6)
--- NOTE | 2021-07-24 18:23 | PCN ---
PROCEDURE NOTE DATE OF SERVICE: 07/24/2021 PROCEDURE: Bone marrow aspirate and biopsy. INDICATION: Thrombocytosis, possible underlying myeloproliferative neoplasm. PROCEDURE DESCRIPTION: After obtaining consent from the patient, the procedure was performed in the endoscopy suite under general anesthesia performed by the anesthesia team. The patient was put in the left lateral decubitus position. The right posterior superior iliac crest was localized. Skin was cleansed with ChloraPrep. All sterile procedures were followed. Monoject needle was inserted; about 15 mL aspirate and 2 cm core biopsy were obtained without any difficulties. Pressure was applied afterwards. The patient tolerated the procedure very well without any immediate complications. MMODL / IJN: [id number] /
== END ==
LOC: OR 11:09
PROVIDERS: ATTEND Internal Medicine Hematology & Oncology
DX: D69.6 Thrombocytopenia, unspecified (principal); I10 Essential (primary) hypertension; I42.9 Cardiomyopathy, unspecified; E11.9 Type 2 diabetes mellitus without complications; J45.909 Unspecified asthma, uncomplicated; E78.5 Hyperlipidemia, unspecified; Z90.49 Acquired absence of other specified parts of digestive tract; Z98.890 Other specified postprocedural states; Z80.1 Family history of malignant neoplasm of trachea, bronchus and lung; Z79.51 Long term (current) use of inhaled steroids; Z79.84 Long term (current) use of oral hypoglycemic drugs; Z79.899 Other long term (current) drug therapy; Z88.0 Allergy status to penicillin; Z86.19 Personal history of other infectious and parasitic diseases
CPT/HCPCS: 85025; 85045; 38222; J2250; J3010; J2704

== ENCOUNTER → 2021-12-02 | Outpatient (CLI) | payer OTHER ==
--- NOTE | 2021-12-02 11:42 | XR ---
EXAMINATION TYPE: XR chest 2V DATE OF EXAM: 12/02/2021 COMPARISON: Chest x-ray October 14, 2020 HISTORY: COPD with shortness of breath TECHNIQUE: Frontal and lateral views of the chest are obtained. FINDINGS: There is no focal air space opacity, pleural effusion, or pneumothorax seen. The cardiac silhouette size is within normal limits. The osseous structures are intact. Cholecystectomy clips r edemonstrated on lateral view. IMPRESSION: No acute process. No significant change from prior.
== END | disposition home or self-care (01) ==
LOC: RADXRYALE 11:27
PROVIDERS: ATTEND Internal Medicine Sleep Medicine
DX: J44.9 Chronic obstructive pulmonary disease, unspecified (principal)
CPT/HCPCS: 71046

== ENCOUNTER → 2022-03-29 | Outpatient (CLI) | payer OTHER ==
--- NOTE | 2022-03-30 20:15 | MM ---
Reason for Exam: Screening (asymptomatic). Last mammogram was performed 1 year(s) and 4 month(s) ago. Patient History: Menarche at age 12. First Full-Term at age 19. Left ovary removed at age 44. Right ovary removed at age 44. Hysterectomy at age 44. Postmenopausal. 1987, Bilateral Implants. Maternal cousin had breast cancer, age 53. Risk Values: Joanie 5 year model risk: 1.4%. NCI Lifetime model risk: 6.2%. Prior Study Comparison: 06/29/2017 Bilateral Screening Mammogram, [facility]. 09/27/2018 Bilateral Screening Mammogram, [facility]. 11/27/2020 Bilateral Screening Mammogram, [facility]. Tissue Density: There are scattered fibroglandular densities. Findings: Analyzed By CAD. Retropectoral implants are redemonstrated. Chronic nodularity upper outer quadrant left breast. No significant change from prior exams. Overall Assessment: Benign, BI-RAD 2 Management: Screening Mammogram of both breasts in 1 year. 1. Patient should continue monthly self breast exams. 2. A clinical breast exam by your physician is recommended on an annual basis. 3. This exam should not preclude additional follow-up of suspicious palpable abnormalities. Electronically signed and approved by: Holland Barrera M.D. Radiologist
== END | disposition home or self-care (01) ==
LOC: RADMAMWWP 12:59
PROVIDERS: ATTEND Internal Medicine
DX: Z12.31 Encounter for screening mammogram for malignant neoplasm of breast (principal)
CPT/HCPCS: 77063; 77067

== ENCOUNTER → 2023-01-27 | Outpatient (CLI) | payer OTHER ==
[2023-01-27 17:48] LABS: INR 0.9 (<1.2); Partial Thromboplastin Time 23.7 sec (22.0-30.0); Prothrombin Time 9.6 sec (9.0-12.0)
[2023-01-28 02:43] LABS: HCT 38.5 % (37.2-46.3); HGB 11.9 d/dL (12.0-15.0); MCH 34.1 pg (27.0-32.0); MCHC 30.9 d/dL (32.0-37.0); MCV 110.3 FL (80.0-97.0); Mean Platelet Volume 8.9 FL (9.5-12.2); NRBC Per 100 WBC 0 X 10*3/uL (0.00-0.01); Platelet Count 369 X 10*3/uL (140-440); RBC 3.49 X 10*6/uL (4.10-5.20); WBC 11.54 X 10*3/uL (4.50-10.00)
[2023-01-28 02:49] LABS: ALT 31 U/L (8-44); AST 16 U/L (13-35); Albumin 4.7 d/dL (3.8-4.9); Albumin/Globulin Ratio 1.96 Ratio (1.60-3.17); Alkaline Phosphatase 91 U/L (41-126); BUN/Creat Ratio 16.78 Ratio (12.00-20.00); Blood Urea Nitrogen 15.1 mg/dL (9.0-27.0); Calcium 9.9 mg/dL (8.7-10.3); Carbon Dioxide 25.2 mmol/L (21.6-31.8); Chloride 102 mmol/L (96-109); Globulin 2.4 d/dL (1.6-3.3); Glucose 127 mg/dL (70-110); Potassium 4.4 mmol/L (3.5-5.5); Sodium 141 mmol/L (135-145); Total Bilirubin 0.4 mg/dL (0.3-1.2); Total Protein 7.1 d/dL (6.2-8.2)
[2023-01-28 04:07] LABS: Appearance,Urine Clear (Clear); Bilirubin,Urine Negative (Negative); Blood,Urine Negative (Negative); Color,Urine Yellow (Yellow); Ketones,Urine Negative (Negative); Nitrite,Urine Negative (Negative); Specific Gravity,Urine 1.016 (1.001-1.030); Urobilinogen,Urine 0.2 E.U./DL
[2023-01-28 04:14] LABS: Bacteria,Urine None Seen (None Seen)
== END | disposition home or self-care (01) ==
LOC: LABPAT 15:43
PROVIDERS: ATTEND Orthopaedic Surgery
DX: Z01.812 Encounter for preprocedural laboratory examination (principal); M16.11 Unilateral primary osteoarthritis, right hip; R94.31 Abnormal electrocardiogram [ECG] [EKG]
CPT/HCPCS: 80053; 81001; 85027; 85610; 85730; 93005

== ENCOUNTER → 2023-02-01 | Outpatient (CLI) | payer OTHER | END | disposition home or self-care (01) | LOC: LABPAT 14:00 | PROVIDERS: ATTEND Orthopaedic Surgery | DX: Z01.812 Encounter for preprocedural laboratory examination (principal) | CPT/HCPCS: 87070 ==

== ENCOUNTER 2023-02-07 05:33 | Day surgery (SDC) | payer OTHER ==
[2023-01-28 09:34] VITALS: BMI 26.2
[~2023-02-07 05:33] MED LIST changes: +ACETAMINOPHEN TAB 500 MG TAB PO PRN; +GABAPENTIN 300 MG CAP PO PRN; -LACTATED RINGERS 1,000 ML IV SCH; +MELOXICAM 7.5 MG TAB PO PRN; -MIDAZOLAM 2 MG/2 ML VIAL ONE; -PROPOFOL 10 MG/ML 20 ML VIAL IV ONE; +TRANEXAMIC 1,000 MG/100ML-NACL 1,000 MG in SALINE 1 100ML.BAG IVPB PRN; -fentaNYL (PF) 50 MCG/ML 2 ML AMP ONE
[2023-02-07] MEDS ORDERED: ONDANSETRON 4 MG/2 ML VIAL IVP ONE (05:38)
[2023-02-07] MEDS ORDERED: MIDAZOLAM 2 MG/2 ML VIAL IV PRN (05:38)
[2023-02-07] MEDS ORDERED: HYDROmorphone 0.5 MG/0.5 ML SYRINGE IVP PRN ×2 (05:38→08:35)
[2023-02-07] MEDS ORDERED: DEXAMETHASONE SOD PHOSPHATE 4 MG/ML 1 ML VIAL IV ONE (05:38)
[2023-02-07] MEDS ORDERED: LIDOCAINE 1% (10MG/ML) FOR IV START INTRADERMA PRN (05:38)
[2023-02-07] MEDS: LACTATED RINGERS 1,000 ML IV SCH (05:57)
[2023-02-07 06:34] LABS: Glucose,Whole Blood 108 mg/dL (70-110)
[2023-02-07] MEDS ORDERED: MIDAZOLAM 2 MG/2 ML VIAL IVP ONE (06:36)
[2023-02-07] MEDS ORDERED: fentaNYL (PF) 50 MCG/ML 2 ML AMP IVP ONE (06:36)
[2023-02-07] MEDS ORDERED: GLYCOPYRROLATE 0.2 MG/ML 2 ML VIAL ONE (06:55)
[2023-02-07] MEDS ORDERED: ROPIVACAINE 5 MG/ML 30 ML VIAL ONE (06:55)
[2023-02-07] MEDS ORDERED: PHENYLEPHRINE-0.9% NACL SYG 1,000 MCG/10 ML SYRINGE ONE (06:55)
[2023-02-07] MEDS ORDERED: LIDOCAINE 2% INJ 20 MG/ML (2 ML VIAL) ONE (06:55)
[2023-02-07] MEDS ORDERED: PROPOFOL 10 MG/ML 20 ML VIAL IV ONE (06:55)
[2023-02-07] MEDS ORDERED: ROCURONIUM 10 MG/ML (5 ML VIAL) IV ONE (06:55)
[2023-02-07] MEDS ORDERED: fentaNYL (PF) 50 MCG/ML 2 ML AMP ONE (06:55)
[2023-02-07] MEDS ORDERED: TRANEXAMIC 1,000 MG/100ML-NACL PREMIX BAG ONE (06:55)
[2023-02-07] MEDS ORDERED: SODIUM CHLORIDE 0.9% (PF) 10 ML VIAL ONE (06:55)
[2023-02-07] MEDS ORDERED: KETAMINE 10 MG/ML 20 ML VIAL ONE (06:55)
[2023-02-07] MEDS ORDERED: NEOSTIGMINE 1 MG/ML 10 ML VIAL ONE (06:55)
[2023-02-07] MEDS ORDERED: MIDAZOLAM 2 MG/2 ML VIAL ONE (06:55)
[2023-02-07] MEDS ORDERED: SUCCINYLCHOLINE CHLORIDE 200 MG/10 ML VIAL IV ONE (06:55)
[2023-02-07] MEDS ORDERED: ceFAZolin 1,000 MG in SODIUM CHLORIDE 0.9% 1,000 ML IRRIGATION ONE (07:00)
[2023-02-07] MEDS ORDERED: ROPIVACAINE 5 MG/ML 30 ML VIAL MISCELLANE ONE ×2 (07:17→08:04)
--- NOTE | 2023-02-07 08:11 | P.ANPRN ---
Procedure Note - Anesthesia - Nerve Block Performed Right Chan Time Out Performed: Yes (06:35) Date of Procedure: 02/07/23 Procedure Start Time: 35 Procedure Stop Time: :40 Location of Patient: PreOp Indication: Acute Post-Operative Pain, Requested by Surgeon (Dr Puente) Sedation Type: Sedate with meaningful contact maintained Preparation: Sterile Prep Position: Supine Catheter: None Needle Types: Pajunk Needle Gauge: 21 Ultrasound used to visualize needle placement: Yes Ultrasound used to observe medication spread: Yes Injectate: 0.5% Ropivacaine (see comment for volume) (20cc +5cc PF Normal saline) Blood Aspirated: No Pain Paresthesia on Injection Noted: No Resistance on Injection: Normal Image Stored and Saved: Yes Events: Uneventful and Well Tolerated
[2023-02-07] MEDS ORDERED: LACTATED RINGERS 1,000 ML IV ONE (08:12)
--- NOTE | 2023-02-07 08:12 | P.OP ---
Date of Procedure: 02/07/23 Preoperative Diagnosis: Severe osteoarthritis right hip Postoperative Diagnosis: Severe osteoarthritis right hip Procedure(s) Performed: Right total hip arthroplasty with a direct anterior approach Implants: [employer] Polarstem standard size 2 with a collar [employer] R3, 3 hole hemispherical acetabular shell, 50 mm [employer] Reflection 6.5 mm cancellus screw, 20 mm 2 [employer] R3, XLPE 20 acetabular liner [employer]hew Oxinium femoral head 36 m, +4 All components were press-fit. The articulation is Oxinium on polyethylene. Anesthesia: GETA Surgeon: Spencer Puente Mainframe Systems Programmer #1: Rebecca Díaz Estimated Blood Loss (ml): 500 Pathology: none sent Condition: stable Disposition: PACU Indications for Procedure: After failure of conservative treatment we discussed the surgical and nonsurgi hernandez treatment options at length. Patient wishes to proceed with a total hip arthroplasty with a direct anterior approach. Complications specific to this procedure were discussed at length, including but not limited to infection, leg length discrepancy, dislocation, nerve injury, and fracture. Covid-19 was also discussed at length with the patient, and they are aware of the current policies and procedures. The patient was given the option of delaying surgery, but they elect to proceed knowing these risks. Patient is aware of all these complications and informed consent was obtained Operative Findings: The operative findings are consistent with severe osteoarthritis of the right hip Description of Procedure: The patient was seen and evaluated in the preoperative area and the consent was reviewed. The operative site was marked with a skin marker. The patient verified the procedure and operative site. A MIKE block was placed by anesthesia in the preoperative area. The patient was then brought to the operating room and given preoperative antibiotics intravenously. 1 g of Tranexamic acid was also given intravenously. A general anesthetic was administered by the anesthesia department. The patient was then placed on the [place] table with the bony prominences well-padded. The hip area was then prepped with a ChloraPrep solution and draped in the usual sterile fashion. A universal timeout was then performed, which confirmed the patient's name, surgical site, ALLERGIES, and procedure being performed on the consent. Next the incision site was located at 1 cm distal and 4 cm lateral to the anterior superior iliac spine. The skin and subcutaneous tissues were sharply incised. Incision was carefully dissected down to the fascia overlying the tensor fascia aggie muscle. This fascia was then incised in line with the muscle fibers. Care was taken to stay laterally in order to avoid injuring the lateral femoral cutaneous nerve. Next, using blunt finger dissection, the tensor fascia aggie muscle was dissected off its investing fascia. The muscle was then carefully retracted laterally with a cobra retractor over the lateral neck of the femur. Next, the circumflex vessels were identified and cauterized using the Aquamantis device. The anterior hip capsule was then exposed. The capsule was then opened and an inverted T fashion. The retractors were then placed intracapsularly. The retractors were maintained intracapsular throughout the procedure. The proximal femur was then visualized. Fluoroscopic x-rays were then taken in order to evaluate the preoperative leg lengths. A small amount of traction was placed on the leg. The femoral neck was then osteotomized at the appropriate level above the lesser trochanter. A small wedge of bone was then removed from the remaining femoral head. Next, using a corkscrew the femoral head was removed from the acetabulum. On gross visual inspection, the femoral head had complete loss of articular cartilage and multiple periarticular osteophytes. The femoral head was then measured. Attention was then turned to the acetabulum. The acetabulum was exposed and any remaining labrum was excised. Sequential reaming of the acetabulum was performed using fluoroscopic guidance until there was a good bed of bleeding cancellus bone. When the appropriate size was reached, a trial was then placed. The position and fit of the trial was checked with fluoroscopy. The trial was then removed. Then, using fluoroscopic guidance, the final implant was impacted at 20 of anteversion and 40 of abduction, and fully seated in the acetabulum. 2 screws were then placed in the acetabulum. Again fluoroscopy was used to check position of the screws. Next, the liner was then impacted, with a 20 elevated liner located in the anterior superior quadrant. Component locking was confirmed. Attention was then directed to the femur. With the aid of the [place] table, the femur was externally rotated to approximately 130, extended, and adducted under the opposite leg. A side hook was then placed under the proximal femur, and the side hook elevator was used to elevate the proximal femur while releasing the capsule. Retractors were then placed. A capsular release was performed, as well as a release of the conjoined tendon, which afforded excellent vis ualization of the proximal femur. Next, a box osteotome was used to lateralize the proximal femur. A zipper trimmer hand was then used to locate the femoral canal. Sequential broaching was then performed with appropriate size which afforded excellent fixation in the proximal femur. A trial was then placed with appropriate head and neck, and the hip was gently reduced with the aid of the [place] table. Fluoroscopy was then used to check position of the components, as well as to evaluate the leg lengths and offset. The leg lengths and offset were measured as closely as possible to ensure stability of the hip. The hip was then gently dislocated and the trials were then removed. Final implants were then impacted and the hip was again reduced. Final fluoroscopic x-rays confirmed that the components were in anatomic position. The leg lengths and offset were measured and were found to coincide with the trial measurements. The hip was also taken through range of motion, and found to be stable. The hip was then copiously irrigated with antibiotic solution with pulsatile lavage. The hip was then irrigated with Irrisept solution. The soft tissues were then injected with a ropivacaine solution. A second dose of 1 g of Tranexamic acid was also given intravenously. The fascia was then closed with 2-0 strata fix suture. The subcutaneous tissue was closed with 3-0 Vicryl. The subcuticular tissue was closed with 3-0 strata fix suture. The skin was then closed with Exofin skin glue. After the glue and dried, and Optifoam silver impregnated dressing was applied. The patient was then transferred to the recovery room in stable condition. The bioinformatics assistant HEIDI Marr was required due to the complexity of surgery, and the need for skilled surgical brace maker for positioning, draping, exposure, retraction, and closure of the wound.
[2023-02-07] MEDS ORDERED: ONDANSETRON 4 MG/2 ML VIAL IVP PRN (08:35)
[2023-02-07] MEDS ORDERED: MAGNESIUM HYDROXIDE 2,400 MG/30 ML CUP PO PRN (08:35)
[2023-02-07] MEDS ORDERED: NALOXONE 0.4 MG/ML 1 ML VIAL IV PRN (08:35)
[2023-02-07] MEDS ORDERED: HYDROcodone/APAP 7.5-325MG 1 EACH TAB PO PRN (08:37)
[2023-02-07 08:44] LABS: Glucose,Whole Blood 147 mg/dL (70-110)
--- NOTE | 2023-02-07 09:29 | XR ---
EXAMINATION TYPE: XR Hip Limited RT DATE OF EXAM: 02/07/2023 COMPARISON: None HISTORY: Right hip replacement TECHNIQUE: AP right hip FINDINGS: Right femoral prosthesis present. Acetabular component is present. No acute fractures are e vident post right hip replacement. Postsurgical soft tissue changes are evident. IMPRESSION: 1. No acute fracture post right hip replacement.
--- NOTE | 2023-02-07 09:32 | FL ---
Fluoroscopy INDICATION: Pain FINDINGS: Fluoroscopy time: 43 seconds. Total dose area product (DAP) in uGy*m?, mGy*cm? (or similar): 2.3605 Images obtained: 0. IMPRESSIONS: 1. Documentation of fluoroscopy.
--- NOTE | 2023-02-07 10:09 | XR ---
Fluoroscopy INDICATION: Right hip replacement FINDINGS: Fluoroscopy time: 43 seconds. Total dose area product (DAP) in uGy*m?, mGy*cm? (or similar): 2.3605 Images obtained: 4. IMPRESSIONS: 1. Documentation of fluoroscopy.
[2023-02-07] MEDS ORDERED: ceFAZolin 10 GM VIAL IVPB ONE (10:57)
[2023-02-07] MEDS: SODIUM CHLORIDE 0.9% 1,000 ML IV SCH ×2 (16:36→20:36)
[2023-02-07] MEDS: HYDROcodone/APAP 7.5-325MG 1 EACH TAB PO PRN (17:25)
[2023-02-07] MEDS: HYDROmorphone 0.5 MG/0.5 ML SYRINGE IVP PRN (19:48)
[2023-02-07] MEDS: ASPIRIN 325 MG TAB PO SCH (19:54)
[2023-02-07] MEDS ORDERED: MIRTAZAPINE 15 MG TAB PO SCH (21:00)
[2023-02-07] MEDS ORDERED: SENNOSIDES-DOCUSATE SODIUM 1 EACH TAB PO SCH ×2 (21:00)
[2023-02-07] MEDS ORDERED: MONTELUKAST 10 MG TAB PO SCH (21:00)
[2023-02-08] MEDS: HYDROmorphone 0.5 MG/0.5 ML SYRINGE IVP PRN (01:11)
[2023-02-08] MEDS ORDERED: DEXTROSE 50% SYRINGE 50 ML IVP PRN ×2 (01:22)
[2023-02-08] MEDS: LACTATED RINGERS 1,000 ML IV SCH (04:25)
[2023-02-08] MEDS: HYDROmorphone 1 MG/ML 1 ML SYRINGE IVP PRN ×2 (04:48→08:49)
[2023-02-08 06:02] LABS: Glucose,Whole Blood 192 mg/dL (70-110)
[2023-02-08 07:08] VITALS: BP 127/82; PULSE 95; RESP 17; TEMP 97.6
[2023-02-08] MEDS ORDERED: PANTOPRAZOLE 40 MG TABLET PO SCH (07:30)
[2023-02-08] MEDS ORDERED: INSULIN ASPART (NovoLOG) 100 UNIT/ML VIAL SQ SCH (07:30)
--- NOTE | 2023-02-08 08:47 | P.DS ---
Providers Expected date of discharge: 02/08/23 Attending physician: Spencer Puente Consults: 02/07/23 14:16 Consult Physician Routine Consulting Provider: Anoop Quezada Consult Reason/Comments: medical management Do you want consulting provider notified?: Yes Primary care physician: Lita Brown - Discharge Diagnosis(es) (1) Osteoarthritis of right hip Current Visit: Yes Status: Acute (2) S/P total hip arthroplasty Current Visit: Yes Status: Acute Hospital Course: This is a 62-year-old female with known history of degenerative arthritis of the right hip. The patient presented for evaluation as an outpatient. After discussion and consideration patient elects to proceed with total hip arthroplasty. The patient is seen preoperatively by Dr. Puente and medically cleared for surgery by their primary care physician. Patient is admitted to [facility] on 02/07/2023 for total hip arthroplasty. The procedure is performed without complication or sequelae. The patient is doing well postoperatively. Labs and vital signs are stable on day of discharge. On day of discharge patient's hip incision is healing well. There is minimal erythema. There is no drainage noted at this time. There is minimal soft tissu e swelling to the hip and thigh. Patient has full foot and ankle motion without difficulty or pain. Calf is soft and nontender to palpation. Neurovascular status to the right lower extremity is intact. Patient is discharged home in good condition. Please see med rec for accurate list of home medications. Plan - Discharge Summary Discharge Rx Participant: Yes New Discharge Prescriptions: New Aspirin 325 mg PO BID #60 tab HYDROcodone/APAP 7.5-325MG [[place] 7.5-325] 1 - 2 tab PO Q6H PRN #32 tab PRN Reason: Pain Sennosides [Senokot] 2 tab PO DAILY PRN #60 tablet PRN Reason: Constipation Ondansetron Odt [Zofran Odt] 1 tab PO Q8HR PRN #10 tab PRN Reason: Nausea No Action lisinopriL [Zestril] 5 mg PO QAM Omeprazole 20 mg PO QAM Cholecalciferol [Vitamin D3 (125 Mcg = 5000 Iu)] 125 mcg PO DAILY Montelukast [Singulair] 10 mg PO HS Fluticasone/Vilanterol [Breo Ellipta 100-25 Mcg Inhaler] 1 inhalation PO QAM Atorvastatin [Lipitor] 20 mg PO DAILY metFORMIN HCL [Glucophage] 1,000 mg PO BID Venlafaxine HCl [Effexor XR] 225 mg PO QAM Albuterol Inhaler [Ventolin Hfa Inhaler] 1 puff INHALATION DIRECTED PRN PRN Reason: Shortness Of Breath Aspirin 325 mg PO DAILY Mirtazapine 15 mg PO HS Discharge Medication List Omeprazole 20 mg PO QAM 01/31/18 [History] lisinopriL [Zestril] 5 mg PO QAM 01/31/18 [History] Albuterol Inhaler [Ventolin Hfa Inhaler] 1 puff INHALATION DIRECTED PRN 06/25/21 [History] Atorvastatin [Lipitor] 20 mg PO DAILY 06/25/21 [History] Cholecalciferol [Vitamin D3 (125 Mcg = 5000 Iu)] 125 mcg PO DAILY 06/25/21 [History] Fluticasone/Vilanterol [Breo Ellipta 100-25 Mcg Inhaler] 1 inhalation PO QAM 06/25/21 [History] Montelukast [Singulair] 10 mg PO HS 06/25/21 [History] Venlafaxine HCl [Effexor XR] 225 mg PO QAM 06/25/21 [History] metFORMIN HCL [Glucophage] 1,000 mg PO BID 06/25/21 [History] Aspirin 325 mg PO DAILY 01/28/23 [History] Mirtazapine 15 mg PO HS 01/28/23 [History] Aspirin 325 mg PO BID #60 tab 02/07/23 [Rx] HYDROcodone/APAP 7.5-325MG [[place] 7.5-325] 1 - 2 tab PO Q6H PRN #32 tab 02/07/23 [Rx] Ondansetron Odt [Zofran Odt] 1 tab PO Q8HR PRN #10 tab 02/07/23 [Rx] Sennosides [Senokot] 2 tab PO DAILY PRN #60 tablet 02/07/23 [Rx] Follow up Appointment(s)/Referral(s): Rebecca Díaz PAC [PHYSICIAN CLINICAL UNIT EDUCATOR] - 02/28/23 1:15 pm Patient Instructions/Handouts: *Surgery [facility] - (Anesthesia) Discharge Instruc tions Outpatient Surgery, How to Use an Incentive Spirometer (DC), Anterior Hip Replacement (DC) Activity/Diet/Wound Care/Special Instructions: Weightbearing as tolerated with walker. Leave dressing intact. Dressing may be removed by home care nurse or by patient in 7 days. Then change dressing twice daily until follow up. May shower with initial dressing intact and after removal. If dressing become saturated, please remove. Please take aspirin 325mg twice daily for 30 days to prevent blood clots. Recommend use of compression stockings daily until follow up to help prevent swelling and blood clots. May remove at night before sleeping. Please follow-up with [facility] in 2 weeks and call with any questions or concerns, . Discharge Disposition: HOME WITH HOME HEALTH SERVICES
[2023-02-08] MEDS: ASPIRIN 325 MG TAB PO SCH (08:48)
[2023-02-08] MEDS ORDERED: lisinopriL 5 MG TAB PO SCH (09:00)
[2023-02-08] MEDS ORDERED: VENLAFAXINE HCL ER 75 MG CAP PO SCH (09:00)
[2023-02-08] MEDS ORDERED: ATORVASTATIN 20 MG TAB PO SCH (09:00)
[2023-02-08] MEDS: HYDROcodone/APAP 7.5-325MG 1 EACH TAB PO PRN (11:40)
[2023-02-08 11:41] LABS: Basophils # (A) 0.01 X 10*3/uL (0.00-0.10); Basophils % (A) 0.1 %; Eosinophils # (A) 0 X 10*3/uL (0.04-0.35); Eosinophils % (A) 0 %; HGB 8.4 d/dL (12.0-15.0); Lymphocytes # (A) 1.63 X 10*3/uL (0.90-5.00); Lymphocytes % (A) 19.8 %; MCH 33.2 pg (27.0-32.0); MCHC 31.1 d/dL (32.0-37.0); MCV 106.7 FL (80.0-97.0); Mean Platelet Volume 9.1 FL (9.5-12.2); Monocytes # (A) 0.82 X 10*3/uL (0.20-1.00); NRBC Per 100 WBC 0 X 10*3/uL (0.00-0.01); Neutrophils # (A) 5.74 X 10*3/uL (1.80-7.70); Neutrophils % (A) 69.6 %; Platelet Count 302 X 10*3/uL (140-440); RBC 2.53 X 10*6/uL (4.10-5.20); RBC Morphology Normal (Normal); RDW 13.2 % (11.5-14.5); WBC 8.24 X 10*3/uL (4.50-10.00)
--- NOTE | 2023-02-08 22:32 | P.CONS ---
History of Present Illness - Reason for Consult Consult date: 02/08/23 - History of Present Illness This is a 62 year old female with medical history of asthma, Diabetes mellitus, GERD, hypertension, anemia, anxiety/depression, former smoker with 30 pack year history. Patient is admitted for elective total right hip arthroplasty for severe osteoarthritis. She is evaluated on the medical floor sitting up in chair currently postoperative day #1. Reports that pain is well controlled, denies and numbness or tingling to the right lower extremity, no edema. Patient has been up and worked with physical therapy who have cleared patient for DC home with home care and home PT. Patient reports no chest pain, no shortness of breath, no n/v/d. Patient has been resumed on all appropriate home medications which will be continued on discharge. Postoperative labs showing white count of 8.24, hgb 8.4, blood glucose 192. Blood pressure 127/82. REVIEW OF SYSTEMS: CONSTITUTIONAL: No fever, no malaise, no fatigue. HEENT: No recent visual problems or hearing problems. Denied any sore throat. CARDIOVASCULAR: No chest pain, orthopnea, PND, no palpitations, no syncope. PULMONARY: No shortness of breath, no cough, no hemoptysis. GASTROINTESTINAL: No diarrhea, no nausea, no vomiting, no abdominal pain. NEUROLOGICAL: No headaches, no weakness, no numbness. HEMATOLOGICAL: Denies any bleeding or petechiae. GENITOURINARY: Denies any burning micturition, frequency, or urgency. MUSCULOSKELETAL/RHEUMATOLOGICAL: Denies any joint pain, swelling, or any muscle pain. ENDOCRINE: Denies any polyuria or polydipsia. The rest of the 14-point review of systems is negative. PHYSICAL EXAMINATION: GENERAL: The patient is alert and oriented x3, not in any acute distress. Well developed, well nourished. HEENT: Pupils are round and equally reacting to light. EOMI. No scleral icterus. No conjunctival pallor. Normocephalic, atraumatic. No pharyngeal erythema. No thyromegaly. CARDIOVASCULAR: S1 and S2 present. No murmurs, rubs, or gallops. PULMONARY: Chest is clear to auscultation, no wheezing or crackles. ABDOMEN: Soft, nontender, nondistended, normoactive bowel sounds. No palpable organomegaly. MUSCULOSKELETAL: No joint swelling or deformity. EXTREMITIES: No cyanosis, clubbing, or pedal edema. NEUROLOGICAL: Gross neurological examination did not reveal any focal deficits. Post surgical right hip dressing intact. SKIN: No rashes. Assessment Postoperative day #1 total right hip hemiarthroplasty due to severe right hip osteoarthritis Hypertension currently normotensive postoperatively History of asthma maintained on inhaled steroid, no acute exacerbation Diabetes mellitus type 2 controlled hx of anemia Gastroesophageal reflux disease History anxiety/depression not an active issue Former smoker GI prophylaxis DVT prophylaxis as per primary patient has been discharged on Aspirin 325 mg BID for 30 days. Patient to resume aspirin 325 mg daily after 30 days Full Code Plan Resume same home medications. DVT prophylaxis as above. Patient will discharge home with home PT today. Discussed to continue on bowel regimen if using narcotics for pain management following surgery. Continue with incentive spirometer 10 x an hour while awake. Follow up with PCP on discharge and orthopedics as recommending. Thank you kindly for this consultation, medically patient is stable for DC home today. The impression and plan of care has been dictated by Opal Hairston, Nurse Practitioner as directed. Dr. Poppy MD I have performed a history and physical examination and medical decision making of this patient, discussed the same with the dictator, and agree with the dictators assessment and plan as written, documented as a scribe. Based on total visit time, I have performed more than 50% of this visit. Past Medical History Past Medical History: Asthma, Diabetes Mellitus, GERD/Reflux, Hypertension Additional Past Medical History / Comment(s): cardiomyopathy-stressed induced., anemia, states elevated white blood cells., colon polyp. History of Any Multi-Drug Resistant Organisms: None Reported Past Surgical History: Hysterectomy, Tubal Ligation Additional Past Surgical History / Comment(s): colonoscopy, EGD Past Anesthesia/Blood Transfusion Reactions: No Reported Reaction Smoking Status: Never smoker - Past Family History Mother Family Medical History: Cancer Additional Family Medical History / Comment(s): Lung cancer. Father Family Medical History: Cancer Sister(s) Family Medical History: Cancer Additional Family Medical History / Comment(s): Rectal cancer. Medications and Allergies Home Medications Medication Instructions Recorded Confirmed Type Omeprazole 20 mg PO QAM 01/31/18 02/07/23 History lisinopriL [Zestril] 5 mg PO QAM 01/31/18 02/07/23 History Albuterol Inhaler [Ventolin Hfa 1 puff INHALATION DIRECTED PRN 06/25/21 02/07/23 History Inhaler] Atorvastatin [Lipitor] 20 mg PO DAILY 06/25/21 02/07/23 History Cholecalciferol [Vitamin D3 (125 125 mcg PO DAILY 06/25/21 02/07/23 History Mcg = 5000 Iu)] Fluticasone/Vilanterol [Breo 1 inhalation PO QAM 06/25/21 02/07/23 History Ellipta 100-25 Mcg Inhaler] Montelukast [Singulair] 10 mg PO HS 06/25/21 02/07/23 History Venlafaxine HCl [Effexor XR] 225 mg PO QAM 06/25/21 02/07/23 History metFORMIN HCL [Glucophage] 1,000 mg PO BID 06/25/21 02/07/23 History Aspirin 325 mg PO DAILY 01/28/23 02/07/23 History Mirtazapine 15 mg PO HS 01/28/23 02/07/23 History Aspirin 325 mg PO BID #60 tab 02/07/23 Rx HYDROcodone/APAP 7.5-325MG [[place] 1 - 2 tab PO Q6H PRN #32 tab 02/07/23 Rx 7.5-325] Ondansetron Odt [Zofran Odt] 1 tab PO Q8HR PRN #10 tab 02/07/23 Rx Sennosides [Senokot] 2 tab PO DAILY PRN #60 tablet 02/07/23 Rx Allergies Allergy/AdvReac Type Severity Reaction Status Date / Time amoxicillin Allergy Unknown Rash/Hives Verified 02/07/23 06:26 Physical Exam Vitals: Vital Signs Temp Pulse Resp BP Pulse Ox 02/08/23 07:07 97.6 F 95 17 127/82 94 L 02/08/23 00:00 97.5 F L 89 18 96/59 94 L 02/07/23 20:37 98.6 F 82 15 116/65 100 02/07/23 15:00 72 16 130/61 98 02/07/23 14:00 73 16 136/76 98 02/07/23 13:00 71 16 135/71 99 02/07/23 12:00 77 16 130/80 99 02/07/23 11:30 74 16 135/70 98 02/07/23 10:54 75 16 130/73 98 Intake and Output 02/07/23 02/08/23 02/08/23 22:59 06:59 14:59 Other: # Voids 2 2 Weight 78.8 kg Results CBC & Chem 7: 02/08/23 07:00 Labs: Abnormal Lab Results - Last 24 Hours (Table) 02/08/23 Range/Units 06:01 POC Glucose (mg/dL) 192 H (70-110) mg/dL Assessment and Plan Time with Patient: Less than 30
== END 2023-02-08 12:25 | disposition home health service (06) ==
LOC: OR 05:33 → 4SSUR 15:51 → OR 02-08 12:25
PROVIDERS: ATTEND Orthopaedic Surgery
DX: M16.11 Unilateral primary osteoarthritis, right hip (principal); E78.5 Hyperlipidemia, unspecified; E11.9 Type 2 diabetes mellitus without complications; H91.90 Unspecified hearing loss, unspecified ear; F41.9 Anxiety disorder, unspecified; F32.A Depression, unspecified; J45.909 Unspecified asthma, uncomplicated; K21.9 Gastro-esophageal reflux disease without esophagitis; M25.751 Osteophyte, right hip; I10 Essential (primary) hypertension; Z79.84 Long term (current) use of oral hypoglycemic drugs; Z90.710 Acquired absence of both cervix and uterus; Z79.899 Other long term (current) drug therapy; Z87.891 Personal history of nicotine dependence; Z98.890 Other specified postprocedural states; Z79.82 Long term (current) use of aspirin; Z88.0 Allergy status to penicillin
CPT/HCPCS: 27130; 97116; 97530; 97161; 64447; 86900; 86901; 85025; 86850; 73501; C1776; J2250; J0330; J1100; J2710; J0690 ×2; J2405; J3010; J1170 ×3; J2795; J2704; J2001; J2371

== ENCOUNTER → 2023-05-11 | Outpatient (CLI) | payer OTHER ==
[2023-05-11 14:32] LABS: African American GFR (CKD) >90 (>60 ml/min/1.73 sqM); Blood Urea Nitrogen 12 mg/dL (7-17); Non-African American GFR(CKD) >90 (>60 ml/min/1.73 sqM)
--- NOTE | 2023-05-11 15:31 | CT ---
EXAMINATION TYPE: CT abdomen w con CT DLP: 931 mGycm, Automated exposure control for dose reduction was used. DATE OF EXAM: 05/11/2023 2:54 PM COMPARISON: None. CLINICAL INDICATION:Female, 63 years old with history of R10.9 abdominal pain; Abdominal pain, nausea , loss of appetite TECHNIQUE: Axial CT of the ;CT abdomen w con;Sagittal and coronal reformats were created on a [employer] workstation. Contrast used:100 mL of Isovue 300 with IV Contrast, (none if empty) Oral contrast used: with Oral Contrast (none if empty) FINDINGS: LOWER CHEST: Partially visualized bilateral breast implants. ABDOMEN LIVER: Unremarkable GALLBLADDER AND BILE DUCTS: The gallbladder surgically absent. PANCREAS: Unremarkable. SPLEEN: Unremarkable. ADRENAL GLANDS: Unremarkable. KIDNEYS AND URETERS: No evidence of hydronephrosis or renal calculus. The ureters are unremarkable. ABDOMEN & PELVIS STOMACH AND BOWEL: No evidence of bowel obstruction. PERITONEUM/RETROPERITONEUM: No evidence of pneumoperitoneum or free fluid. VASCULATURE: No evidence of aortic aneurysm. MUSCULOSKELETAL: No acute osseous abnormalities LYMPH NODES: No gross evidence for lymphadenopathy. SOFT TISSUE/ABDOMINAL WALL: Unremarkable IMPRESSION: No evidence for acute abdominal process.
--- NOTE | 2023-05-13 08:58 | MM ---
Reason for Exam: Screening (asymptomatic). Last mammogram was performed 1 year(s) and 1 month(s) ago. Patient History: Menarche at age 12. First Full-Term at age 19. Left ovary removed at age 44. Right ovary removed at age 44. Hysterectomy at age 44. Postmenopausal. 1986, Bilateral Implants. Maternal cousin had breast cancer, age 53. Risk Values: Joanie 5 year model risk: 1.4%. NCI Lifetime model risk: 5.8%. Prior Study Comparison: 09/27/2018 Bilateral Screening Mammogram, [facility]. 11/27/2020 Bilateral Screening Mammogram, [facility]. 03/29/2022 Bilateral MG 3D screen mammo imp/cad., [facility]. Tissue Density: There are scattered fibroglandular densities. Findings: Analyzed By CAD. There is no suspicious group of microcalcifications or new suspicious mass in either breast. Bilateral implants are intact. Overall Assessment: Negative, BI-RAD 1 Management: Screening Mammogram of both breasts in 1 year. . Patient should continue monthly self-breast exams. A clinical breast exam by your physician is recommended on an annual basis. This exam should not preclude additional follow-up of suspicious palpable abnormalities. Note on Joanie scores and lifetime risk: 1. A Joanie score greater than 3% is considered moderate risk. If this is the case, consider specialist referral to assess eligibility for a risk reducing agent. 2. If overall lifetime risk for the development of breast cancer is 20% or higher, the patient may qualify for future screening with alternating mammogram and breast MRI. Electronically signed and approved by: Neymar León M.D. Radiologis
== END | disposition home or self-care (01) ==
LOC: RADMAMWWP 13:15
PROVIDERS: ATTEND Internal Medicine
DX: Z12.31 Encounter for screening mammogram for malignant neoplasm of breast (principal); R10.9 Unspecified abdominal pain; R11.0 Nausea; R63.0 Anorexia; Z78.0 Asymptomatic menopausal state; Z80.3 Family history of malignant neoplasm of breast; Z98.82 Breast implant status
CPT/HCPCS: 82565; 84520; 77067; 77063; 74160; 36415; Q9967

== ENCOUNTER → 2023-06-16 | Outpatient (CLI) | payer OTHER ==
--- NOTE | 2023-06-16 16:36 | CTL ---
EXAMINATION TYPE: CT Low Dose Lung DATE OF EXAM ORDERED: 06/16/2023 HISTORY: Lung cancer screening CT DLP: 88.[address] CTDI: 2.7 mGy Automated exposure control for dose reduction was used. COMPARISON: 01/11/2019 TECHNIQUE: Low dose computed tomography scan was performed through the chest at 1 mm thick sections a nd reconstructed images in multiple planes at 1 mm and [address] DIAGNOSTIC QUALITY: Satisfactory FINDINGS: There are mild emphysematous changes. There is a right lower lobe calcified granuloma but no suspicious lung mass or nodule is seen. There is no abnormal airspace/consolidative density or abnormal interstitial density. There is no pleural effusion, pleural thickening or pneumothorax. The great vessels chest are normal is no mediastinal, hilar or axillary adenopathy. There are no focal osseous lesions. Limited scanning the upper abdomen reveals no gross abnormality. IMPRESSION: 1. Lung RADS category 2 benign findings. Continue routine screening at yearly intervals. 3 mild emphy sematous changes. 4. No acute cardiopulmonary disease.
== END | disposition home or self-care (01) ==
LOC: RADCTMAIN 15:51
PROVIDERS: ATTEND Internal Medicine Hematology & Oncology
DX: Z12.2 Encounter for screening for malignant neoplasm of respiratory organs (principal); Z87.891 Personal history of nicotine dependence
CPT/HCPCS: 71271

== ENCOUNTER 2023-12-13 06:52 | Day surgery (SDC) | payer OTHER ==
[~2023-12-13 06:52] MED LIST changes: -ACETAMINOPHEN TAB 500 MG TAB PO PRN; -GABAPENTIN 300 MG CAP PO PRN; +LIDOCAINE 1% (10MG/ML) FOR IV START INTRADERMA PRN; -MELOXICAM 7.5 MG TAB PO PRN; -TRANEXAMIC 1,000 MG/100ML-NACL 1,000 MG in SALINE 1 100ML.BAG IVPB PRN
[2023-12-13 07:10] VITALS: RESP 16; TEMP 97.2
[2023-12-13] MEDS: IV FLUID CONTINUATION 1,000 ML IV ONE (07:19)
[2023-12-13] MEDS: LACTATED RINGERS 1,000 ML IV SCH (07:19)
[2023-12-13 07:27] LABS: Glucose,Whole Blood 97 mg/dL (70-110)
[2023-12-13] MEDS ORDERED: PROPOFOL 10 MG/ML 20 ML VIAL IV ONE (08:00)
[2023-12-13] MEDS ORDERED: LIDOCAINE 1% INJ 10MG/ML (20 ML MDV) ONE (08:00)
--- NOTE | 2023-12-13 08:19 | P.PCN ---
Date of Procedure: 12/13/23 Procedure(s) Performed: BRIEF HISTORY: Patient is a 59-year-old, pleasant, white female scheduled for an upper endoscopy as a part evaluation of persistent nausea for the last 2 years duration. She has intermittent emesis. She denies any abdominal pain or heartburn.. She has history of diabetes mellitus and currently on Mounjaro for the last 6 months. PROCEDURE PERFORMED: Esophagogastroduodenoscopy with biopsy PREOPERATIVE DIAGNOSIS: Chronic persistent nausea of 2 years duration. IV sedation per anesthesia. PROCEDURE: After informed consent was obtained, the patient was brought into the endoscopy unit. IV sedation was administered by Anesthesia under continuous monitoring. Initially the Olympus GIF-140 video endoscope was inserted into the mouth. Esophagus intubated without any difficulty. It was gradually advanced into the stomach and duodenum and carefully examined. The bulb and the second part of the duodenum appeared normal. The scope at this time was withdrawn to the stomach, adequately insufflated with air, and upon careful examination, mucosa of the antrum, and mild gastritis and biopsies were done from this area. There was large amount of food in the stomach suggestive of diabetic gastroparesis. The visualized portions of the body, cardia and the fundus appeared normal. The scope was then withdrawn into the esophagus. The GE junction was located at 39 cm from the incisors. The esophagus appeared normal. There were no erosions or ulcerations seen and the patient tolerated the procedure well. IMPRESSION: 1. Large amount of retained solid food in the stomach suggestive of diabetic gastroparesis. 2. Mild antral gastritis. RECOMMENDATIONS: The findings of this examination were discussed with the patient as well as her family. She was advised to follow-up with the biopsy results. Recommended small frequent meals.. Continue with omeprazole 20 mg daily and follow antireflux measures. She may benefit from a trial of Reglan if she has worsening symptoms.
[2023-12-13 08:49] VITALS: BP 134/83; PULSE 74
== END 2023-12-13 09:07 | disposition home or self-care (01) ==
LOC: ORWHC2ENDO 06:52
PROVIDERS: ATTEND Internal Medicine Gastroenterology
DX: K29.50 Unspecified chronic gastritis without bleeding (principal); K21.00 Gastro-esophageal reflux disease with esophagitis, without bleeding; E11.9 Type 2 diabetes mellitus without complications; J45.909 Unspecified asthma, uncomplicated; G47.33 Obstructive sleep apnea (adult) (pediatric); F41.9 Anxiety disorder, unspecified; F32.A Depression, unspecified; Z79.899 Other long term (current) drug therapy; Z88.0 Allergy status to penicillin; Z79.84 Long term (current) use of oral hypoglycemic drugs
CPT/HCPCS: 88305; 43239; J2001; J2704

== ENCOUNTER → 2024-06-14 | Outpatient (CLI) | payer MEDICARE, OTHER ==
--- NOTE | 2024-06-19 17:48 | MM ---
Reason for Exam: Hx of breast augmentation, asymptomatic. Last mammogram was performed 1 year(s) and 1 month(s) ago. Patient History: Menarche at age 12. First Full-Term at age 19. Left ovary removed at age 44. Right ovary removed at age 44. Hysterectomy at age 44. Postmenopausal. 1986, Bilateral Implants. Maternal cousin had breast cancer, age 53. Risk Values: Joanie 5 year model risk: 1.5%. NCI Lifetime model risk: 5.6%. Prior Study Comparison: 11/27/2020 Bilateral Screening Mammogram, [facility]. 03/29/2022 Bilateral MG 3D screen mammo imp/cad., [facility]. 05/11/2023 Bilateral MG 3D screen mammo imp/cad., [facility]. Tissue Density: There are scattered areas of fibroglandular density. Findings: Analyzed By CAD. Bilateral subpectoral breast implants. Chronic nodularity upper outer left breast. There is no suspicious group of microcalcifications or new suspicious mass in either breast. Overall Assessment: Benign, BI-RAD 2 Management: Screening Mammogram of both breasts in 1 year. . Patient should continue monthly self-breast exams. A clinical breast exam by your physician is recommended on an annual basis. This exam should not preclude additional follow-up of suspicious palpable abnormalities. Note on Joanie scores and lifetime risk: 1. A Joanie score greater than 3% is considered moderate risk. If this is the case, consider specialist referral to assess eligibility for a risk reducing agent. 2. If overall lifetime risk for the development of breast cancer is 20% or higher, the patient may qualify for future screening with alternating mammogram and breast MRI. [facility], , 06/19/2024 5:45 PM. Electronically signed and approved by: Holland Barrera M.D. Radiologist
== END | disposition home or self-care (01) ==
LOC: RADMAMWWP 13:53
PROVIDERS: ATTEND Internal Medicine
DX: Z12.31 Encounter for screening mammogram for malignant neoplasm of breast (principal); Z90.722 Acquired absence of ovaries, bilateral; Z78.0 Asymptomatic menopausal state; Z80.3 Family history of malignant neoplasm of breast; R92.323 Mammographic fibroglandular density, bilateral breasts; Z98.82 Breast implant status; N63.21 Unspecified lump in the left breast, upper outer quadrant
CPT/HCPCS: 77063; 77067

== ENCOUNTER → 2024-09-18 | Outpatient (CLI) | payer MEDICARE ==
--- NOTE | 2024-09-18 10:46 | CTL ---
EXAMINATION TYPE: CT Low Dose Lung DATE OF EXAM: 09/18/2024 10:36 AM COMPARISON: 06/08/2023. CLINICAL INDICATION: Female, 64 years old with history of Z12.2 SCREENING F17.210 ALON DEP; Former smo ker quit 20 years ago, was 1 ppd x 37 years. No concerns, history of tobacco use. TECHNIQUE: Multiple axial non-contrast scans were obtained from approximately the lung apices through the upper abdomen. Coronal and sagittal reformatted images were obtained. Low dose technique was uti lized. MIP were created on a separate workstation and submitted for review. CT DLP: 53 mGycm, Automated exposure control for dose reduction was used. CT Contrast: Contrast used: None Oral contrast used: None FINDINGS: Lack of intravenous contrast and low dose technique limits the evaluation of the vascular and soft ti ssue structures. LUNGS: No evidence of pulmonary fibrosis. No evidence of focal consolidation, pneumothorax or pleural effusion. Centrilobular emphysema changes. Few scattered thin-walled air cysts throughout the lungs. Nodules: RUL: Calcified granuloma series 3 image 102.. RML: None. RLL: None. SORIN: 5 mm series 3 image 52 similar prior.. LLL: None. AIRWAY: Patent and unremarkable. HEART: Size within normal limits. Mild coronary artery calcifications present. MEDIASTINUM: No gross evidence of adenopathy. VASCULATURE: No aortic aneurysm. MUSCULOSKELETAL: Mild disc degeneration changes are present throughout the thoracolumbar spine. SOFT TISSUES/LYMPH NODES: Bilateral breast implants there appears to be possible rupture of the left breast implant. Versus intracapsular fluid collection. LOWER NECK: No significant findings. UPPER ABDOMEN: The gallbladder surgically absent. Small splenule present.. IMPRESSION: 1. No clinically significant pulmonary nodules. 2. Mild emphysema. 3. Bilateral breast implants, there appears to be possible rupture of the left breast implant. Versus intracapsular fluid collection unchanged from prior on 06/16/2023. CT LUNG RAD AND CT CHEST RECOMMENDATION: Lung-Rad 2 Benign Appearance or Behavior: Continue annual sc reening with LDCT in 12 months. S Modifier (other clinically significant findings): None Recommend smoking cessation (if current smoker), or continuation of smoking cessation (if prior smoke r). Annual screening for lung cancer with low-dose computed tomography is recommended in adults ages 55 to 77 years who have a 30 pack-year smoking history and currently smoke or have quit within the [facility] 15 years. Screening should be discontinued once a person has not smoked for 15 years or develops a health problem that substantially limits life expectancy or the ability or willingness to have curat tim lung surgery. Lung rads 2021 [email or web address] [email or web address], , 09/18/2024 10:43 AM
== END | disposition home or self-care (01) ==
LOC: RADCTMAIN 09:33
PROVIDERS: ATTEND Internal Medicine Hematology & Oncology
DX: Z12.2 Encounter for screening for malignant neoplasm of respiratory organs (principal); F17.210 Nicotine dependence, cigarettes, uncomplicated; J43.2 Centrilobular emphysema; Z98.82 Breast implant status
CPT/HCPCS: 71271